=== PATIENT | male | born 1945 | race Caucasian/White ===

== ENCOUNTER 2020-06-15 15:58 | Inpatient (IN) | payer MEDICARE, OTHER ==
--- NOTE | 2020-06-15 17:19 | ER Document Report ---
ED Medical Screen (RME) - General Chief Complaint: Leg Pain Stated Complaint: LEG PAIN Time Seen by Provider: 06/15/20 16:55 Mode of Arrival: Wheelchair Information source: Patient Notes: Patient is a 74-year-old male comes emergency room with a 5-day onset of lower extremity increasing weakness. Patient states last Friday he went to a neurologist who placed him in a Pedersen catheter and leg bag. Then that afternoon he went to an ears nose and throat doctor who he states is scoped him on both sides of his nose and placed him on some Flonase and other medication for possible sinus surgery later on down the line. He states he went to bed that Friday night feeling okay when he woke up in the morning on Friday he had low back pain with radiation down both legs and he could barely get out of bed. He states that after a period time he was able to maneuver his way out by holding onto things and he took some anti-inflammatory got a little better and Motl through the day. Over the course of this past week patient states that the pain is gotten to where he is almost unable to move at all. He has to hold onto something to get his balance and and he also has to use it to steady him. He has gone from a normal gait down to a gait that has him pulling one leg in order to get it to move to his front. He also states the pain comes from the low back and down around to the lower abdomen and down both legs. He denies having any known traumatic injuries. He has not had any IV problems or drug use. He has just gotten off around antibiotics for urine with Cipro. Denies any recent fevers. And no recent surgeries besides the Pedersen catheter placement. Patient denies any loss of stool. Unable to ascertain loss of urine since Pedersen catheter was placed Physical examination: Patient is a well-nourished well-developed 74-year-old though in no apparent distress appears uncomfortable. Cardiac: Regular rate and rhythm are noted with no murmurs. Lungs: Bilateral breath sounds with breath sounds increased clear to auscultation. Lower extremities and neurologic exam. This shows patient in the sitting position with eyes closed has sensation from the inner ankles to the groin as he does from the outer ankles to the hips. His sensation is equal. Measuring patient's lower extremity strength in a sitting position patient is unable to raise his legs without the support of the hands at the waist. And this is bilateral. Unable to do DTRs for him sitting in a wheelchair and unable to get enough support in order to get a response. I have greeted and performed a rapid initial assessment of this patient. A comprehensive ED assessment and evaluation of the patient, analysis of test results and completion of the medical decision making process will be conducted by additional ED providers. Dictation of this chart was performed using voice recognition software; therefore, there may be some unintended grammatical errors. I discussed the case with Dr. Suero she agrees that given this presentation patient needs an MRI of the lumbar spine. We will also work-up labs for any sign of infection. - Related Data Allergies/Adverse Reactions: No Known Allergies Allergy (Unverified 06/15/20 16:53) Home Medications: Ipratroprium bromide, Enalapril, Allopurinol Physical Exam - Vital signs Vitals: Temp Pulse Resp BP Pulse Ox 98.0 F 91 20 143/68 H 99 06/15/20 16:06/15/20 16:02 06/15/20 16:02 06/15/20 16:02 06/15/20 16:02 Course - Vital Signs Vital signs: Temp Pulse Resp BP Pulse Ox 98.0 F 91 20 143/68 H 99 06/15/20 16:02 06/15/20 16:02 06/15/20 16:02 06/15/20 16:02 06/15/20 16:02
[2020-06-15 17:52] LABS: ABSOLUTE EOSINOPHILS # (AUTO) 0.5 10^3/uL (0.0-0.6); ABSOLUTE LYMPHOCYTES (AUTO) 1.7 10^3/uL (0.5-4.7); ABSOLUTE MONOCYTES (AUTO) 0.7 10^3/uL (0.1-1.4); ABSOLUTE NEUT (AUTO) 3.2 10^3/uL (1.7-8.2); BASOPHILS % (AUTO) 0.4 % (0-2); HEMATOCRIT 41.4 % (37.9-51.0); MEAN CORPUSCULAR HEMOGLOBIN 30.4 pg (27.0-33.4); MEAN CORPUSCULAR HGB CONC 33.7 g/dL (32.0-36.0); MEAN CORPUSCULAR VOLUME 90 fl (80-97); MONOCYTES % (AUTO) 10.9 % (3-13); PLATELET COUNT 268 10^3/uL (150-450); RED CELL DISTRIBUTION WIDTH 14.2 % (11.5-14.0); SEGMENTED NEUTROPHILS % (AUTO) 52.7 % (42-78); TOTAL CELLS COUNTED % (AUTO) 100 %; WHITE BLOOD COUNT 6.2 10^3/uL (4.0-10.5)
[2020-06-15 18:09] LABS: APPEARANCE,URINE CLOUDY; BILIRUBIN,URINE NEGATIVE (NEGATIVE); COLOR,URINE YELLOW; GLUCOSE, URINE NEGATIVE (NEGATIVE); KETONES,URINE NEGATIVE (NEGATIVE); LEUKOCYTE ESTERASE,URINE LARGE (NEGATIVE); NITRITE,URINE POSITIVE (NEGATIVE); PROTEIN,URINE 100 mg/dL (NEGATIVE); URINE SPECIFIC GRAVITY 1.016; UROBILINOGEN,URINE NEGATIVE mg/dL (<2.0)
[2020-06-15 18:12] LABS: ALBUMIN 4.3 g/dL (3.5-5.0); ALKALINE PHOSPHATASE 100 U/L (38-126); ANION GAP 10 (5-19); ASPARTATE AMINO TRANSFERASE 25 U/L (17-59); BILIRUBIN,TOTAL 0.4 mg/dL (0.2-1.3); BLOOD UREA NITROGEN 14 mg/dL (7-20); CALCIUM 9.7 mg/dL (8.4-10.2); CARBON DIOXIDE 27 mmol/L (22-30); CHLORIDE 105 mmol/L (98-107); GLUCOSE 88 mg/dL (75-110); POTASSIUM 4.6 mmol/L (3.6-5.0); TOTAL PROTEIN 7.7 g/dL (6.3-8.2)
--- NOTE | 2020-06-15 21:10 | RADIOLOGY REPORT (SQ) ---
EXAM DESCRIPTION: [facility]: MR LUMBAR SPINE WITHOUT IV CONTRAST CLINICAL HISTORY: 74 years Male; lower extremity weakness; anterior and posterior flank and low back pain. Lower extremity weakness. TECHNIQUE: Noncontrast MRI lumbar spine. COMPARISON: None. FINDINGS: Alignment is anatomic. L1-L2: No stenosis L2-L3: No stenosis L3-L4: No stenosis L4-L5: Minimal disc bulging eccentric to the left. No stenosis. L5-S1: Mild facet arthropathy. Minimal disc bulging. No stenosis. No acute bone marrow edema or perivertebral soft tissue edema. Conus medullaris and cauda equina are within normal limits. No epidural fluid collections. IMPRESSION: 1. Minimal chronic degenerative changes 2. No central stenosis, foraminal stenosis, or root displacement.
[2020-06-16] MEDS ORDERED: CIPROFLOXACIN 400 MG/D5W RTU 400 MG/200 ML RTUPB IV ONE (00:11)
[2020-06-16] MEDS ORDERED: ERTAPENEM SODIUM INJ 1 GM VIAL IV ONE (00:15)
--- NOTE | 2020-06-16 00:45 | ER Document Report ---
Entered by RIKKI CARO SCRIBE 06/15/20 [id number] Acting as scribe for:ALEXIA FRAIRE, DO ED Extremity Problem, Lower - General Chief Complaint: Leg Pain Stated Complaint: LEG PAIN Time Seen by Provider: 06/15/20 16:55 Mode of Arrival: Wheelchair Information source: Patient Notes: This 74 year old male patient presents to the ED today with complaints of bilateral lower extremity pain and weakness for the past x5 days. Patient reports difficulty ambulating secondary to pain and weakness that was resolved after taking Excedrin the day of onset, but has returned worse tonight. He mentions that he had a Jimenez catheter and a leg bag placed on 06/09/[address] Dumont at [facility] and that he finished a x30 day course of Cipro x2 days ago for a bladder infection. Denies fever or recent injury. No decreased sensation to lower extremities. - Related Data Allergies/Adverse Reactions: No Known Allergies Allergy (Unverified 06/15/20 16:53) Home Medications: Ipratroprium bromide, Enalapril, Allopurinol Past Medical History - General Information source: Patient - Social History Smoking Status: Unknown if Ever Smoked Smoking Education Provided: No Lives with: Spouse/Significant other Family History: Reviewed & Not Pertinent Patient has suicidal ideation: No Patient has homicidal ideation: No - Past Medical History Cardiac Medical History: Reports: Hx Hypertension Pulmonary Medical History: Reports: Hx COPD - BiPAP at night Malignancy Medical History: Reports Hx Prostate Cancer - 1999 Musculoskeletal Medical History: Reports Hx Gout Review of Systems - Review of Systems Constitutional: See HPI. denies: Fever EENT: No symptoms reported Cardiovascular: No symptoms reported Respiratory: No symptoms reported Gastrointestinal: No symptoms reported Genitourinary: No symptoms reported Male Genitourinary: No symptoms reported Musculoskeletal: See HPI, Other - BLE pain and weakness Skin: No symptoms reported Hematologic/Lymphatic: No symptoms reported Neurological/Psychological: See HPI. denies: Numbness, Tingling -: Yes All other systems reviewed and negative Physical Exam - Vital signs Vitals: Temp Pulse Resp BP Pulse Ox 98.0 F 91 20 143/68 H 99 06/15/20 16:02 06/15/20 16:02 06/15/20 16:02 06/15/20 16:02 06/15/20 16:02 - General General appearance: Alert In distress: None - HEENT Head: Normocephalic, Atraumatic Eyes: Normal Extraocular movements intact: Yes Pupils: PERRL - Respiratory Respiratory status: No respiratory distress Chest status: Nontender Breath sounds: Normal Chest palpation: Normal - Cardiovascular Rhythm: Regular Heart sounds: Normal auscultation Murmur: No Friction rub: No Gallop: None auscultated - Abdominal Inspection: Obese Distension: No distension Bowel sounds: Normal Tenderness: Nontender - Abdomen soft Organomegaly: No organomegaly - Back Back: Normal, Nontender - Extremities General upper extremity: Normal inspection - Neurological Orientation: AAOx4 Anna Coma Scale Eye Opening: Spontaneous [place] Coma Scale Verbal: Oriented [place] Coma Scale Motor: Obeys Commands [place] Coma Scale Total: 15 Additional motor exam normals: Weakness - Proximal muscle weakness which is symmetric and 3/5 bilaterally - Psychological Associated symptoms: Normal affect, Normal mood - Skin Skin Temperature: Warm Skin Moisture: Dry Skin Color: Normal Course - Re-evaluation Re-evalutation: 06/16/20 02:03 MDM 74 year old male with symmetric proximal muscle weakness. Just finished 30 days of cipro which may be the cause of this. Finished this 2 days ago. Not a diabetic and no fever or chills or cough or chest pain or sob. Was taking cipro due to indwelling jimenez and uti. Local urology has followed for this. No rash. No back pain. I have discussed the pt with Dr. Mehta who will see and evaluate for admission. - Vital Signs Vital signs: Temp Pulse Resp BP Pulse Ox 98.0 F 91 20 143/68 H 99 06/15/20 16:02 06/15/20 16:02 06/15/20 16:02 06/15/20 16:02 06/15/20 16:02 - Laboratory Result Diagrams: 06/15/20 17:26 06/15/20 17:26 Laboratory results interpreted by me: 06/15/20 06/15/20 06/15/20 17:26 17:26 17:26 RDW 14.2 H Eos % (Auto) 8.0 H C-Reactive Protein 71.1 H Urine Protein 100 H Urine Blood LARGE H Urine Nitrite POSITIVE H Ur Leukocyte Esterase LARGE H Urine Ascorbic Acid 20 H - Diagnostic Test Radiology reviewed: Reports reviewed Discharge - Discharge Clinical Impression: Myopathy UTI (urinary tract infection) Qualifiers: Urinary tract infection type: site unspecified Hematuria presence: with hematuria Qualified Code(s): N39.0 - Urinary tract infection, site not specified; R31.9 - Hematuria, unspecified Condition: Stable Disposition: ADMITTED OBSERVATION Admitting Provider: Tyson (Hospitalist) Unit Admitted: Medical Floor I personally performed the services described in the documentation, reviewed and edited the documentation which was dictated to the scribe in my presence, and it accurately records my words and actions.
[2020-06-16 00:53] LABS: C-REACTIVE PROTEIN 71.1 mg/L (<10.0); PHOSPHORUS 3.8 mg/dL (2.5-4.5)
[2020-06-16] MEDS ORDERED: RINGERS SOLUTION,LACTATED 1,000 ML IV ONE (01:05)
[2020-06-16] MEDS ORDERED: LEVALBUTEROL HCL NEB 0.63 MG/3 ML AMPUL NEB PRN (02:53)
[2020-06-16] MEDS ORDERED: MAG HYDROX/AL HYDROX/SIMETH SUSP 30 ML UDCUP PO PRN (02:53)
[2020-06-16] MEDS ORDERED: MAGNESIUM HYDROXIDE SUSP 30 ML UDCUP PO PRN (02:53)
[2020-06-16] MEDS ORDERED: ONDANSETRON HCL INJ/PF 4 MG/2 ML SDV IV PRN (02:53)
[2020-06-16] MEDS ORDERED: GUAIFENESIN SYRP 200 MG/10 ML UDC PO PRN (03:05)
[2020-06-16] MEDS ORDERED: LORAZEPAM INJ 2 MG/1 ML VIAL IV PRN (03:05)
[2020-06-16] MEDS ORDERED: ACETAMINOPHEN 325 MG TABLET PO PRN (03:05)
[2020-06-16] MEDS ORDERED: HYDRALAZINE HCL INJ/PF 20 MG/1 ML SDV IV PRN (03:05)
[2020-06-16] MEDS ORDERED: MEROPENEM 1 GM VIAL IV SCH (06:00)
[2020-06-16] MEDS: HEPARIN SOD (PORCINE) 5,000 UNIT/ML 1 ML VIAL SUBCUT SCH ×3 (06:23→21:37)
--- NOTE | 2020-06-16 06:47 | PDOC H&P ---
History of Present Illness Admission Date/PCP: 06/16/2020 2:17 No local PCP Patient complains of: Bilateral leg pain History of Present Illness: KRISTIN SOLIS is a 74 year old male who presented emergency room with a 6-day history of lower extremity pain. He admits waking with severe pain in his proximal bilateral lower extremities on 06/10/2020. He took anti-inflammatory medications and had some improvement in the pain such that he was able to get out of bed, however he has been unable to walk without holding onto objects to steady him. He describes the pain as a severe deep aching in his muscles that is worsened by movement and activity. The pain originates in his lower back and moves bilaterally around his hips down into his groins and thighs. He denies prior similar episodes. He denies other associated or accompanying signs and symptoms. He finished a 30-day course of Cipro for a urinary tract infection on 06/13/2020. He has not identified any additional aggravating or ameliorating factors for his pain. In the emergency room he was found to have an essentially unremarkable evaluation with the exception of a positive urinalysis from his recently placed indwelling Pedersen catheter and a dramatically elevated C-reactive protein. An MRI of his lumbar spine was also unremarkable. Patient was subsequently admitted to the hospital for further evaluation and treatment. Past Medical History Cardiac Medical History: Reports: Hypertension Denies: Atrial Fibrillation, Coronary Artery Disease, Hyperlipidema Pulmonary Medical History: Reports: Chronic Obstructive Pulmonary Disease (COPD) - BiPAP at night, Respiratory Failure - Chronic respiratory failure requiring BiPAP at night Denies: Asthma EENT Medical History: Denies: Cataracts, Ears - Hearing aids Neurological Medical History: Denies: Hemorrhagic CVA, Ischemic CVA, Seizures Endocrine Medical History: Reports: Obesity Denies: Diabetes Mellitus Type 1, Diabetes Mellitus Type 2, Hyperthyroidism, Hypothyroidism Renal/ Medical History: Reports: Other - Urinary retention with placement of Pedersen catheter 06/09/2020 Denies: Chronic Kidney Disease, Nephrolithiasis Malignancy Medical History: Reports: Other - Prostate cancer GI Medical History: Denies: Cirrhosis, Hepatitis, Peptic Ulcer Disease Musculoskeltal Medical History: Reports: Arthritis, Gout Skin Medical History: Denies: Eczema, Psoriasis Psychiatric Medical History: Denies: Alcohol Dependency, Substance Abuse, Tobacco Dependency Traumatic Medical History: Reports: None Hematology: Denies: Anemia, Bleeding Tendencies Infectious Medical History: Reports: None Past Surgical History Past Surgical History: Placement and removal of a scrotal valve for urinary control after radiation injury (treatment of prostate cancer) to the bladder and pelvic structures. Past Surgical History: Reports: Appendectomy, Other - Repair of right retinal detachment Social History Information Source: Patient Lives with: Spouse/Significant other Smoking Status: Former Smoker Electronic Cigarette use?: No Frequency of Alcohol Use: Occasional Hx Recreational Drug Use: No Drugs: None Hx Prescription Drug Abuse: No - Advance Directive Resuscitation Status: Full Code Surrogate healthcare decision maker:: Delia Solis Family History Family History: CAD, Hypertension, Malignancy, Other - Kidney disease. denies: DM Parental Family History Reviewed: Yes Children Family History Reviewed: No Sibling(s) Family History Reviewed.: Yes Medication/Allergy Home Medications: Allopurinol [Zyloprim 100 mg Tablet] 100 mg PO DAILY 06/16/20 Enalapril Maleate [Vasotec 5 mg Tablet] 5 mg PO DAILY 06/16/20 Fluticasone Propionate [Flonase Nasal [place] 50 Mcg/[place] 16 gm] 2 spray NASL BID 06/16/20 Ipratropium [place] [Atrovent 0.06% Nasal [place]] 2 spray NASL Q6 06/16/20 Metoprolol Succinate [Toprol Xl 25 mg Tab.sr] 25 mg PO DAILY 06/16/20 Omeprazole 20 mg PO Q6AM 06/16/20 Simvastatin [Zocor 40 mg Tablet] 40 mg PO QHS 06/16/20 Allergies/Adverse Reactions: No Known Allergies Allergy (Unverified 06/15/20 16:53) Review of Systems Constitutional: ABSENT: chills, fever(s) Eyes: ABSENT: visual disturbances, other - Eye pain Ears: ABSENT: hearing changes, other - Ear pain Nose, Mouth, and Throat: ABSENT: headache(s), sore throat Cardiovascular: ABSENT: chest pain, palpitations Respiratory: ABSENT: dyspnea, hemoptysis Gastrointestinal: ABSENT: abdominal pain, constipation, diarrhea, nausea, vomiting Genitourinary: PRESENT: difficulty urinating - Urinary retention treated with Pedersen catheter placed on 06/09/2020. ABSENT: dysuria, hematuria Musculoskeletal: PRESENT: as per HPI, back pain, muscle weakness. ABSENT: joint swelling Integumentary: ABSENT: pruritus, rash Neurological: PRESENT: as per HPI, abnormal gait, weakness - Bilateral proximal lower extremity and hip girdle musculature. ABSENT: confusion, convulsions, focal weakness, memory loss, syncope Psychiatric: ABSENT: anxiety, depression Endocrine: ABSENT: cold intolerance, heat intolerance Hematologic/Lymphatic: ABSENT: easy bleeding, easy bruising Allergic/Immunologic: ABSENT: seasonal rhinorrhea Physical Exam Vital Signs: Temp Pulse Resp BP Pulse Ox 98.0 F 91 20 143/68 H 99 06/15/20 16:02 06/15/20 16:02 06/15/20 16:02 06/15/20 16:02 06/15/20 16:02 Intake & Output 06/14/20 06/15/20 06/16/20 23:59 23:59 23:59 Weight 95.5 kg General appearance: PRESENT: cooperative, mild distress - Secondary to lower extremity pain, obese Head exam: PRESENT: atraumatic, normocephalic Eye exam: PRESENT: conjunctiva pink. ABSENT: conjunctival injection, scleral icterus Ear exam: PRESENT: normal external ear exam. ABSENT: bleeding, drainage Mouth exam: PRESENT: dry mucosa, neck supple Neck exam: ABSENT: thyromegaly, tracheal deviation Respiratory exam: PRESENT: prolonged expiratory phas - Mildly prolonged expi ratory phase throughout all terry, symmetrical, unlabored, wheezes - Minimal expiratory wheezes in all terry Cardiovascular exam: PRESENT: RRR. ABSENT: clicks, gallop, rubs Pulses: PRESENT: normal radial pulses, normal dorsalis pedis pul Vascular exam: PRESENT: normal capillary refill. ABSENT: pallor GI/Abdominal exam: PRESENT: normal bowel sounds, soft. ABSENT: tenderness Rectal exam: PRESENT: deferred Extremities exam: ABSENT: joint swelling, pedal edema Musculoskeletal exam: PRESENT: tenderness - 2+ muscular tenderness palpation in the bilateral hip girdles and thighs., other - Decreased strength of the bilate ral quadriceps. ABSENT: deformity, dislocation Neurological exam: PRESENT: alert, oriented to person, oriented to place, oriented to time, oriented to situation, CN II-XII grossly intact, other - "Wooden gait". ABSENT: motor sensory deficit Psychiatric exam: PRESENT: appropriate affect, normal mood Skin exam: PRESENT: dry, intact, warm. ABSENT: jaundice, rash, urticaria Results Laboratory Results: 06/15/20 17:26 06/15/20 17:26 06/15/20 06/15/20 06/15/20 17:26 17:26 17:26 WBC 6.2 RBC 4.60 Hgb 14.0 Hct 41.4 MCV 90 MCH 30.4 MCHC 33.7 RDW 14.2 H Plt Count 268 Seg Neutrophils % 52.7 Sodium 142.4 Potassium 4.6 Chloride 105 Carbon Dioxide 27 Anion Gap 10 BUN 14 Creatinine 1.15 Est GFR ( Amer) > 60 Glucose 88 Calcium 9.7 Phosphorus Total Bilirubin 0.4 AST 25 Alkaline Phosphatase 100 C-Reactive Protein Total Protein 7.7 Albumin 4.3 TSH Urine Color YELLOW Urine Appearance CLOUDY Urine pH 5.0 Ur Specific [place] 1.016 Urine Protein 100 H Urine Glucose (UA) NEGATIVE Urine Ketones NEGATIVE Urine Blood LARGE H Urine Nitrite POSITIVE H Ur Leukocyte Esterase LARGE H Urine WBC (Auto) >182 Urine RBC (Auto) >182 06/15/20 06/15/20 17:26 17:26 WBC RBC Hgb Hct MCV MCH MCHC RDW Plt Count Seg Neutrophils % Sodium Potassium Chloride Carbon Dioxide Anion Gap BUN Creatinine Est GFR ( Amer) Glucose Calcium Phosphorus 3.8 Total Bilirubin AST Alkaline Phosphatase C-Reactive Protein 71.1 H Total Protein Albumin TSH 2.57 Urine Color Urine Appearance Urine pH Ur Specific [place] Urine Protein Urine Glucose (UA) Urine Ketones Urine Blood Urine Nitrite Ur Leukocyte Esterase Urine WBC (Auto) Urine RBC (Auto) 06/15/20 17:26 Creatine Kinase 62 Impressions: Lumbar Spine MRI 06/15/20 17:13 IMPRESSION: 1. Minimal chronic degenerative changes 2. No central stenosis, foraminal stenosis, or root displacement. Assessment and Plan - Diagnosis (1) Myalgia Is this a current diagnosis for this admission?: Yes (2) Myositis Qualifiers: Myositis type: unspecified type Myositis location: thigh Laterality: unspecified laterality Qualified Code(s): M60.859 - Other myositis, unspecified thigh Is this a current diagnosis for this admission?: Yes (3) Elevated C-reactive protein (CRP) Is this a current diagnosis for this admission?: Yes (4) UTI (urinary tract infection) Qualifiers: Urinary tract infection type: site unspecified Hematuria presence: with hematuria Qualified Code(s): N39.0 - Urinary tract infection, site not specified; R31.9 - Hematuria, unspecified Is this a current diagnosis for this admission?: Yes (5) Hypertension Qualifiers: Hypertension type: essential hypertension Qualified Code(s): I10 - Essential (primary) hypertension Is this a current diagnosis for this admission?: Yes (6) Chronic obstructive pulmonary disease Qualifiers: COPD type: unspecified COPD Qualified Code(s): J44.9 - Chronic obstructive pulmonary disease, unspecified Is this a current diagnosis for this admission?: Yes (7) Gout Qualifiers: Gout site: unspecified site Gout etiology: unspecified cause Chronicity: unspecified Qualified Code(s): M10.9 - Gout, unspecified Is this a current diagnosis for this admission?: Yes - Plan Summary Summary: Patient will be admitted to the medical floor where he will receive routine supportive and symptomatic cares. He will be treated with IV fluids utilizing lactated Ringer solution 167 mL/h. He will receive IV antibiotics utilizing meropenem pending blood and urine culture results. He will use morphine sulfate 2 to 4 mg IV every 2 hours as needed for pain. He will use Ativan 1 mg IV every 4 hours as needed for anxiety or restlessness. He will be on a cardiac diet with restrictions for gout. CBCs, metabolic profiles and additional laboratory and/or radiographic evaluations will be obtained as appropriate. Patient's usual home medications will be continued, as appropriate, when his medication list has been verified and reconciled. A physical therapy consultation will be obtained. - Time Time Spent with patient: 15-24 minutes Medications reviewed and adjusted accordingly: Yes Anticipated Discharge Disposition: [facility] Facility Anticipated Discharge Timeframe: when bed available - Inpatient Certification Based on my medical assessment, after consideration of the patient's comorbidities, presenting symptoms, or acuity I expect that the services needed warrant INPATIENT care.: Yes I certify that my determination is in accordance with my understanding of Medicare's requirements for reasonable and necessary INPATIENT services [42 CFR 412.3e].: Yes Medical Necessity: Need For IV Fluids, Need for Pain Control, Need for IV Antibiotics
[2020-06-16] MEDS ORDERED: BUDESONIDE NEB 0.5 MG/2 ML AMPUL NEB SCH (08:00)
[2020-06-16] MEDS ORDERED: IPRATROPIUM BROMIDE 0.02% NEB 0.5 MG/2.5 ML AMPUL NEB SCH (08:00)
[2020-06-16] MEDS ORDERED: LEVALBUTEROL HCL NEB 1.25 MG/3 ML AMPUL NEB SCH (08:00)
[2020-06-16] MEDS ORDERED: METHYLPREDNISOLONE INJ 40 MG/1 ML SDV IV ONE (09:03)
--- NOTE | 2020-06-16 09:13 | PDOC PROGRESS REPORT ---
Subjective Progress Note for:: 06/16/20 Subjective:: Patient is still clearly uncomfortable. Reports discomfort across the suprapubic area and quadriceps muscles. Reason For Visit: ACUTE MYALGIA,ACUTE MYOSITIS Physical Exam Vital Signs: Temp Pulse Resp BP Pulse Ox 97.4 F 79 16 154/77 H 98 06/16/20 08:41 06/16/20 08:41 06/16/20 08:41 06/16/20 08:41 06/16/20 08:41 Intake & Output 06/15/20 06/16/20 06/17/20 06:59 06:59 06:59 Weight 95.5 kg General appearance: PRESENT: cooperative, mild distress, well-developed Head exam: PRESENT: atraumatic, normocephalic Eye exam: PRESENT: conjunctiva pink. ABSENT: scleral icterus Ear exam: PRESENT: normal external ear exam. ABSENT: bleeding, drainage Mouth exam: PRESENT: moist, tongue midline Teeth exam: ABSENT: poor dentation Respiratory exam: PRESENT: clear to auscultation sara, symmetrical, unlabored. ABSENT: accessory muscle use, prolonged expiratory phas, rales, rhonchi, tachypnea, wheezes Cardiovascular exam: PRESENT: RRR, +S1, +S2. ABSENT: bradycardia, diastolic murmur, irregular rhythm, systolic murmur, tachycardia GI/Abdominal exam: PRESENT: normal bowel sounds, soft. ABSENT: distended, tenderness - No tenderness over the entire abdomen including the suprapubic area. Rectal exam: PRESENT: deferred Gentrourinary exam: PRESENT: indwelling catheter - With leg bag placed by his urologist. Extremities exam: ABSENT: pedal edema, tenderness - Despite complaints of thigh pain there is no tenderness in the muscles. Musculoskeletal exam: PRESENT: ambulatory, normal inspection. ABSENT: deformity, dislocation Neurological exam: PRESENT: alert, awake, oriented to person, oriented to place, oriented to time, oriented to situation, CN II-XII grossly intact. ABSENT: altered, motor sensory deficit Psychiatric exam: PRESENT: anxious, appropriate affect. ABSENT: agitated Focused psych exam: ABSENT: delusional, paranoid, restlessness Skin exam: PRESENT: dry, normal color, warm. ABSENT: erythema, petechiae, rash Results Laboratory Results: 06/15/20 17:26 06/15/20 17:26 06/15/20 06/15/20 06/15/20 17:26 17:26 17:26 WBC 6.2 RBC 4.60 Hgb 14.0 Hct 41.4 MCV 90 MCH 30.4 MCHC 33.7 RDW 14.2 H Plt Count 268 Seg Neutrophils % 52.7 Sodium 142.4 Potassium 4.6 Chloride 105 Carbon Dioxide 27 Anion Gap 10 BUN 14 Creatinine 1.15 Est GFR ( Amer) > 60 Glucose 88 Calcium 9.7 Phosphorus Total Bilirubin 0.4 AST 25 Alkaline Phosphatase 100 C-Reactive Protein Total Protein 7.7 Albumin 4.3 TSH Urine Color YELLOW Urine Appearance CLOUDY Urine pH 5.0 Ur Specific [place] 1.016 Urine Protein 100 H Urine Glucose (UA) NEGATIVE Urine Ketones NEGATIVE Urine Blood LARGE H Urine Nitrite POSITIVE H Ur Leukocyte Esterase LARGE H Urine WBC (Auto) >182 Urine RBC (Auto) >182 06/15/20 06/15/20 17:26 17:26 WBC RBC Hgb Hct MCV MCH MCHC RDW Plt Count Seg Neutrophils % Sodium Potassium Chloride Carbon Dioxide Anion Gap BUN Creatinine Est GFR ( Amer) Glucose Calcium Phosphorus 3.8 Total Bilirubin AST Alkaline Phosphatase C-Reactive Protein 71.1 H Total Protein Albumin TSH 2.57 Urine Color Urine Appearance Urine pH Ur Specific [place] Urine Protein Urine Glucose (UA) Urine Ketones Urine Blood Urine Nitrite Ur Leukocyte Esterase Urine WBC (Auto) Urine RBC (Auto) 06/15/20 17:26 Creatine Kinase 62 Impressions: Lumbar Spine MRI 06/15/20 17:13 IMPRESSION: 1. Minimal chronic degenerative changes 2. No central stenosis, foraminal stenosis, or root displacement. Assessment and Plan - Diagnosis (1) UTI (urinary tract infection) Qualifiers: Urinary tract infection type: site unspecified Hematuria presence: with hematuria Qualified Code(s): N39.0 - Urinary tract infection, site not s pecified; R31.9 - Hematuria, unspecified Is this a current diagnosis for this admission?: Yes Plan: Continue meropenem await urine culture results (2) Myalgia Is this a current diagnosis for this admission?: Yes Plan: Unsure of etiology. Not a recognized side effect of ciprofloxacin. Trial dose of Solu-Medrol. (3) Myopathy Is this a current diagnosis for this admission?: Yes Plan: Trial of single dose Solu-Medrol as above. Physical therapy to see the patient. (4) Elevated C-reactive protein (CRP) Is this a current diagnosis for this admission?: Yes Plan: Typical of an inflammatory process. Single dose of steroids as noted above and monitor closely. - Time Time Spent with patient: 15-24 minutes Medications reviewed and adjusted accordingly: Yes Anticipated Discharge Disposition: Home, Self Care Anticipated Discharge Timeframe: within 72 hours
[2020-06-16] MEDS ORDERED: METHYLPREDNISOLONE INJ 125 MG/2 ML SDV IV ONE (09:30)
[2020-06-16] MEDS: DOCUSATE SODIUM 100 MG CAPSULE PO SCH ×2 (10:39→18:15)
[2020-06-16] MEDS: FAMOTIDINE 20 MG TABLET PO SCH ×2 (10:39→21:38)
[2020-06-16] MEDS: RINGERS SOLUTION,LACTATED 1,000 ML IV PRN ×2 (10:40→18:19)
[2020-06-16] MEDS: MEROPENEM 1 GM in NORMAL SALINE 50 ML IV SCH ×2 (14:35→21:38)
[2020-06-16] MEDS: IPRATROPIUM BROMIDE 0.06% NASAL SPRAY 15 ML NASL SCH (18:15)
[2020-06-16] MEDS: FLUTICASONE NASAL SPRAY 50 MCG/SPRY 120 SPRAY/16 GM NASL SCH (21:36)
[2020-06-16] MEDS ORDERED: SIMVASTATIN 40 MG TABLET PO SCH (22:00)
[2020-06-17] MEDS: IPRATROPIUM BROMIDE 0.06% NASAL SPRAY 15 ML NASL SCH ×3 (00:52→14:08)
[2020-06-17 05:43] LABS: HEMATOCRIT 37.4 % (37.9-51.0); HEMOGLOBIN 12.5 g/dL (13.5-17.0); MEAN CORPUSCULAR HEMOGLOBIN 29.8 pg (27.0-33.4); MEAN CORPUSCULAR HGB CONC 33.4 g/dL (32.0-36.0); MEAN CORPUSCULAR VOLUME 89 fl (80-97); PLATELET COUNT 242 10^3/uL (150-450); RED BLOOD COUNT 4.19 10^6/uL (4.35-5.55); WHITE BLOOD COUNT 8.3 10^3/uL (4.0-10.5)
[2020-06-17] MEDS: HEPARIN SOD (PORCINE) 5,000 UNIT/ML 1 ML VIAL SUBCUT SCH ×2 (05:55→14:07)
[2020-06-17] MEDS: MEROPENEM 1 GM in NORMAL SALINE 50 ML IV SCH ×2 (05:56→14:07)
[2020-06-17 06:02] LABS: ALBUMIN 3.3 g/dL (3.5-5.0); ALKALINE PHOSPHATASE 88 U/L (38-126); ANION GAP 9 (5-19); ASPARTATE AMINO TRANSFERASE 22 U/L (17-59); BILIRUBIN,TOTAL 0.2 mg/dL (0.2-1.3); BLOOD UREA NITROGEN 16 mg/dL (7-20); C-REACTIVE PROTEIN 50.1 mg/L (<10.0); CARBON DIOXIDE 25 mmol/L (22-30); CHLORIDE 105 mmol/L (98-107); CREATINE KINASE 59 U/L (55-170); GLUCOSE 151 mg/dL (75-110); POTASSIUM 4.7 mmol/L (3.6-5.0); TOTAL PROTEIN 6.1 g/dL (6.3-8.2)
[2020-06-17] MEDS ORDERED: ENALAPRIL MALEATE 5 MG TABLET PO SCH (10:00)
[2020-06-17] MEDS ORDERED: ALLOPURINOL 100 MG TABLET PO SCH (10:00)
[2020-06-17] MEDS ORDERED: METOPROLOL SUCCINATE 25 MG TAB.SR.24H PO SCH (10:00)
[2020-06-17] MEDS ORDERED: METHYLPREDNISOLONE INJ 40 MG/1 ML SDV IV SCH (10:00)
[2020-06-17] MEDS: DOCUSATE SODIUM 100 MG CAPSULE PO SCH (10:26)
[2020-06-17] MEDS: FLUTICASONE NASAL SPRAY 50 MCG/SPRY 120 SPRAY/16 GM NASL SCH (10:29)
[2020-06-17 13:34] VITALS: BP 151/83
--- NOTE | 2020-06-17 16:00 | PDOC DISCHARGE SUMMARY ---
Impression - Admit/DC Date/PCP Admission Date/Primary Care Provider: 06/16/20 02:54 Discharge Date: 06/17/20 - Discharge Diagnosis (1) UTI (urinary tract infection) Is this a current diagnosis for this admission?: Yes (2) Myalgia Is this a current diagnosis for this admission?: Yes (3) Myopathy Is this a current diagnosis for this admission?: Yes (4) Elevated C-reactive protein (CRP) Is this a current diagnosis for this admission?: Yes - Additional Information Resuscitation Status: Full Code Discharge Diet: Cardiac Discharge Activity: Activity As Tolerated Referrals: MAGI BEAL MD [ACTIVE STAFF] - 06/27/20 11:15 am (Please bring all your currrent medications, ID card, all discharge paperwork, and wear a mask.) Prescriptions: Cefpodoxime Proxetil [Vantin 200 mg Tablet] 200 mg PO BID #8 tablet Home Medications: Allopurinol [Zyloprim 100 mg Tablet] 100 mg PO DAILY 06/16/20 Enalapril Maleate [Vasotec 5 mg Tablet] 5 mg PO DAILY 06/16/20 Fluticasone Propionate [Flonase Nasal [place] 50 Mcg/[place] 16 gm] 2 spray NASL BID 06/16/20 Ipratropium [place] [Atrovent 0.06% Nasal [place]] 2 spray NASL Q6 06/16/20 Metoprolol Succinate [Toprol Xl 25 mg Tab.sr] 25 mg PO DAILY 06/16/20 Omeprazole 20 mg PO Q6AM 06/16/20 Simvastatin [Zocor 40 mg Tablet] 40 mg PO QHS 06/16/20 Cefpodoxime Proxetil [Vantin 200 mg Tablet] 200 mg PO BID #8 tablet 06/17/20 Docusate Sodium [Colace 100 mg Capsule] 100 mg PO BID capsule 06/17/20 History of Present Illiness History of Present Illness: KRISTIN GAFFNEY is a 74 year old male who presented emergency room with a 6-day history of lower extremity pain. He admits waking with severe pain in his proximal bilateral lower extremities on 06/10/2020. He took anti-inflammatory medications and had some improvement in the pain such that he was able to get out of bed, however he has been unable to walk without holding onto objects to steady him. He describes the pain as a severe deep aching in his muscles that is worsened by movement and activity. The pain originates in his lower back and moves bilaterally around his hips down into his groins and thighs. He denies prior similar episodes. He denies other associated or accompanying signs and symptoms. He finished a 30-day course of Cipro for a urinary tract infection on 06/13/2020. He has not identified any additional aggravating or ameliorating factors for his pain. In the emergency room he was found to have an essentially unremarkable evaluation with the exception of a positive urinalysis from his recently placed indwelling Pedersen catheter and a dramatically elevated C-reactive protein. An MRI of his lumbar spine was also unremarkable. Patient was subse quently admitted to the hospital for further evaluation and treatment. Hospital Course Hospital Course: unremarkable. Improved with steroids and antibiotics. Physical Exam Vital Signs: Temp Pulse Resp BP Pulse Ox 97.7 F 91 20 151/83 H 97 06/17/20 12:00 06/17/20 12:00 06/17/20 12:00 06/17/20 12:00 06/17/20 12:00 Intake & Output 06/16/20 06/17/20 06/18/20 06:59 06:59 06:59 Intake Total 4260 500 Output Total 720 Balance 3540 500 Weight 95.5 kg 93.9 kg General appearance: PRESENT: no acute distress Respiratory exam: PRESENT: clear to auscultation sara, symmetrical, unlabored. ABSENT: rales, rhonchi, tachypnea, wheezes Cardiovascular exam: PRESENT: RRR, +S1, +S2. ABSENT: bradycardia, diastolic murmur, irregular rhythm, systolic murmur, tachycardia GI/Abdominal exam: PRESENT: normal bowel sounds, soft. ABSENT: tenderness Neurological exam: PRESENT: alert, awake, oriented to person, oriented to place, oriented to time, oriented to situation Results Laboratory Results: WBC 8.3 10^3/uL (4.0-10.5) 06/17/20 04:58 RBC 4.19 10^6/uL (4.35-5.55) L 06/17/20 04:58 Hgb 12.5 g/dL (13.5-17.0) L 06/17/20 04:58 Hct 37.4 % (37.9-51.0) L 06/17/20 04:58 MCV 89 fl (80-97) 06/17/20 04:58 MCH 29.8 pg (27.0-33.4) 06/17/20 04:58 MCHC 33.4 g/dL (32.0-36.0) 06/17/20 04:58 RDW 14.0 % (11.5-14.0) 06/17/20 04:58 Plt Count 242 10^3/uL (150-450) 06/17/20 04:58 Lymph % (Auto) 28.0 % (13-45) 06/15/20 17:26 Bracken % (Auto) 10.9 % (3-13) 06/15/20 17:26 Eos % (Auto) 8.0 % (0-6) H 06/15/20 17:26 Baso % (Auto) 0.4 % (0-2) 06/15/20 17:26 Absolute Neuts (auto) 3.2 10^3/uL (1.7-8.2) 06/15/20 17:26 Absolute Lymphs (auto) 1.7 10^3/uL (0.5-4.7) 06/15/20 17:26 Absolute Monos (auto) 0.7 10^3/uL (0.1-1.4) 06/15/20 17:26 Absolute Eos (auto) 0.5 10^3/uL (0.0-0.6) 06/15/20 17:26 Absolute Basos (auto) 0.0 10^3/uL (0.0-0.2) 06/15/20 17:26 Seg Neutrophils % 52.7 % (42-78) 06/15/20 17:26 ESR 85 mm/hr (0-20) H 06/16/20 06:25 Sodium 138.9 mmol/L (137-145) 06/17/20 04:58 Potassium 4.7 mmol/L (3.6-5.0) 06/17/20 04:58 Chloride 105 mmol/L (98-107) 06/17/20 04:58 Carbon Dioxide 25 mmol/L (22-30) 06/17/20 04:58 Anion Gap 9 (5-19) 06/17/20 04:58 BUN 16 mg/dL (7-20) 06/17/20 04:58 Creatinine 1.03 mg/dL (0.52-1.25) 06/17/20 04:58 Est GFR ( Amer) > 60 (>60) 06/17/20 04:58 Est GFR (MDRD) Non-Af > 60 (>60) 06/17/20 04:58 Glucose 151 mg/dL (75-110) H 06/17/20 04:58 Calcium 9.0 mg/dL (8.4-10.2) 06/17/20 04:58 Phosphorus 3.8 mg/dL (2.5-4.5) 06/15/20 17:26 Magnesium 1.8 mg/dL (1.6-2.3) 06/17/20 04:58 Total Bilirubin 0.2 mg/dL (0.2-1.3) 06/17/20 04:58 Direct Bilirubin 0.0 mg/dL (0.0-0.4) 06/17/20 04:58 Neonat Total Bilirubin Not Reportable 06/17/20 04:58 Neonat Direct Bilirubin Not Reportable 06/17/20 04:58 Neonat Indirect Bili Not Reportable 06/17/20 04:58 AST 22 U/L (17-59) 06/17/20 04:58 ALT 19 U/L (<50) 06/17/20 04:58 Alkaline Phosphatase 88 U/L (38-126) 06/17/20 04:58 Creatine Kinase 59 U/L (55-170) 06/17/20 04:58 C-Reactive Protein 50.1 mg/L (<10.0) H 06/17/20 04:58 Total Protein 6.1 g/dL (6.3-8.2) L 06/17/20 04:58 Albumin 3.3 g/dL (3.5-5.0) L 06/17/20 04:58 TSH 2.57 uIU/mL (0.47-4.68) 06/15/20 17:26 Urine Color YELLOW 06/15/20 17:26 Urine Appearance CLOUDY 06/15/20 17:26 Urine pH 5.0 (5.0-9.0) 06/15/20 17:26 Ur Specific [place] 1.016 06/15/20 17:26 Urine Protein 100 mg/dL (NEGATIVE) H 06/15/20 17:26 Urine Glucose (UA) NEGATIVE mg/dL (NEGATIVE) 06/15/20 17:26 Urine Ketones NEGATIVE mg/dL (NEGATIVE) 06/15/20 17:26 Urine Blood LARGE (NEGATIVE) H 06/15/20 17:26 Urine Nitrite POSITIVE (NEGATIVE) H 06/15/20 17:26 Urine Bilirubin NEGATIVE (NEGATIVE) 06/15/20 17:26 Urine Urobilinogen NEGATIVE mg/dL (<2.0) 06/15/20 17:26 Ur Leukocyte Esterase LARGE (NEGATIVE) H 06/15/20 17:26 Urine WBC (Auto) >182 /HPF 06/15/20 17:26 Urine RBC (Auto) >182 /HPF 06/15/20 17:26 Urine Bacteria (Auto) 1+ /HPF 06/15/20 17:26 Urine WBC Clumps FEW /HPF 06/15/20 17:26 Urine Mucus (Auto) OCC /LPF 06/15/20 17:26 Urine Ascorbic Acid 20 (NEGATIVE) H 06/15/20 17:26 Impressions: Lumbar Spine MRI 06/15/20 17:13 IMPRESSION: 1. Minimal chronic degenerative changes 2. No central stenosis, foraminal stenosis, or root displacement. 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 Seeing urologist next week. Plan of Treatment: based on recent cultures and preliminary results will discharge on 3rd gen cephalosporin Goals: resolve recurrent uti's Time Spent: Greater than 30 Minutes Stroke Is this a Stroke Patient?: No Acute Heart Failure - Is this a Heart Failure Patient?: No
== END 2020-06-17 16:29 | disposition home or self-care (01) | DRG 690 ==
LOC: ER 15:58 → EH 06-16 02:12 → OBSVTOIN 06-16 02:54 → 4S 06-16 11:59
PROVIDERS: ADMIT Emergency Medicine; ATTEND Hospitalist
DX: N39.0 Urinary tract infection, site not specified (principal); M60.9 Myositis, unspecified; M79.605 Pain in left leg; M79.604 Pain in right leg; I10 Essential (primary) hypertension; R31.9 Hematuria, unspecified; R79.82 Elevated C-reactive protein (CRP); J44.9 Chronic obstructive pulmonary disease, unspecified; M10.9 Gout, unspecified; Z96.0 Presence of urogenital implants; Z85.46 Personal history of malignant neoplasm of prostate
CPT/HCPCS: 36415; 72148; 80053; 81001; 82550; 83735; 84100; 84443; 85025; 85027; 85652; 86140; 87040; 87086; 87088; 87186; 94640; 94660; 96374; 99285; J1335; J1644; J2185; J2930; J3490; J7120

== ENCOUNTER → 2020-07-10 | Outpatient (CLI) | payer MEDICARE, OTHER ==
--- NOTE | 2020-07-10 15:06 | RADIOLOGY REPORT (SQ) ---
EXAM DESCRIPTION: SACROILIAC JOINTS IMAGES COMPLETED DATE/TIME: 07/10/2020 2:11 pm REASON FOR STUDY: (M46.1)SACROILIITIS, NOT ELSEWHERE CLASSIFIED M46.1 SACROILIITIS, NOT ELSEWHERE C LASSIFIED COMPARISON: None. NUMBER OF VIEWS: Three views. TECHNIQUE: AP and oblique views of the sacroiliac joints. LIMITATIONS: None. FINDINGS: MINERALIZATION: Normal. BONES: No acute fracture or dislocation. No worrisome bone lesions. Minimal inferior osteophytes. JOINTS: The sacroiliac joints are patent. Mild inferior sclerosis bilaterally. No unusual widening or fusion. SOFT TISSUES: No soft tissue swelling. No radio-opaque foreign body. OTHER: Brachytherapy seeds within the prostate IMPRESSION: Mild degenerative changes without sacroiliac fusion or asymmetric sclerosis. TECHNICAL DOCUMENTATION: JOB ID: [id number] 2010 [employer]- All Rights Reserved Reading location - IP/workstation name: [email or web address]
== END ==
LOC: RAD 13:40
PROVIDERS: ATTEND Internal Medicine Geriatric Medicine
DX: M46.1 Sacroiliitis, not elsewhere classified (principal)
CPT/HCPCS: 72200

== ENCOUNTER → 2020-07-28 | Outpatient (CLI) | payer MEDICARE, OTHER ==
--- NOTE | 2020-07-29 18:59 | RADIOLOGY REPORT (SQ) ---
EXAM DESCRIPTION: MRI LT LOWER EXTREMITY COMBO IMAGES COMPLETED DATE/TIME: 07/28/2020 7:39 pm REASON FOR STUDY: (M79.652)PAIN IN LEFT THIGH M79.652 PAIN IN LEFT THIGH. Left thigh 0 mass for 2 weeks. Radiating pain. No reported injury. History of prostate cancer status post radiation 20 yea rs ago. COMPARISON: None. TECHNIQUE: Left upper leg images acquired and stored on PACS. Multiplanar images include fat sensit blaire sequences as T1, water sensitive sequences as FST2 or STIR, cartilage sensitive sequences as FSPD , and gradient echo sequences. No IV contrast was given due to patient's lower GFR of 42 today. LIMITATIONS: None. FINDINGS: BONES: There is abnormal bone marrow signal with T1 hypointense signal and T2 hyperintense signal at the pubic symphysis extending into the inferior pubic rami bilaterally. No linear fractur e line. Small amount of fluid at the pubic symphysis and mild edema in the surrounding muscles. SOFT TISSUES: There is an intramuscular lesion within the medial bursa was muscle which is isointense to muscle on T1 series and hyperintense on T2 series measuring 2.7 x 1.8 cm. This is contained with in the muscular layer with mild surrounding inflammatory change at the muscle on T2 weighted images. Remaining soft tissues have a normal appearance. There is no hip joint effusion. Sigmoid diverticu losis without evidence of diverticulitis. OTHER: No other significant finding. IMPRESSION: 1. Intramuscular cystic lesion with signal characteristics suggestive of an intramuscular hematoma, h owever other mixed cystic lesions could have this appearance. Clinical correlation for recent injury recommended. Follow-up with contrast-enhanced MRI is recommended for complete characterization to e valuate for soft tissue component. 2. Abnormal bone marrow signal at the pubic symphysis and inferior pubic rami without definite fractu re line, consistent with bone marrow edema. Finding could be seen with contusion, infection or infla mmatory process. Osteitis pubis could also have this appearance. Clinical correlation. TECHNICAL DOCUMENTATION: JOB ID: [id number] 2010 [email or web address]- All Rights Reserved Reading location - IP/workstation name: [email or web address]
== END ==
LOC: RAD 19:22
PROVIDERS: ATTEND Nurse Practitioner Adult Health
DX: M79.652 Pain in left thigh (principal); M62.89 Other specified disorders of muscle
CPT/HCPCS: 82565

== ENCOUNTER → 2020-09-19 | Outpatient (CLI) | payer MEDICARE, OTHER ==
--- NOTE | 2020-09-19 14:29 | RADIOLOGY REPORT (SQ) ---
EXAM DESCRIPTION: CT LEFT LOWER EXTREMITY WITH IMAGES COMPLETED DATE/TIME: 09/19/2020 10:03 am REASON FOR STUDY: R22.9 LOCALIZED SWELLING, MASS AND LUMP, LEFT LOWER LIMB R22.42 LOCALIZED SWELLIN G, MASS AND LUMP, LEFT LOWER LIMB COMPARISON: Pelvis radiograph 07/10/2020. MRI left hip 07/28/2020. TECHNIQUE: CT scan of the left hip performed with intravenous or oral contrast. Images reviewed wit h soft tissue and bone windows. Reconstructed coronal and sagittal MPR images reviewed. All images stored on PACS. All CT scanners at this facility use dose modulation, iterative reconstruction, and/or weight based d osing when appropriate to reduce radiation dose to as low as reasonably achievable (ALARA). [facility]: Dose Right [facility]: CareDose [facility]: Dose Right [facility]: Teradose 4D [facility]: [employer] Total 50 mL Omnipaque contrast given. GFR greater than 60. RADIATION DOSE: mGy. LIMITATIONS: None. FINDINGS: PELVIC BONES: There is no acute fracture. Mixed sclerotic and permeative appearance at th e pubic symphysis with associated inflammatory change corresponding to the abnormal signal on previou s MRI. Pin foci of gas are seen at the inferior aspect of the pubic symphysis were there is also dys trophic calcification. Proximal femurs have a normal appearance. There is sclerosis at the sacroili ac joints bilaterally. No sacral fracture. VISUALIZED SPINE: No acute findings. SYMPTOMATIC HIP: No acute fracture or dislocation. No worrisome bone lesions. OPPOSITE HIP: No acute fracture or dislocation. No worrisome bone lesions. PELVIC SOFT TISSUES: Soft tissue swelling and inflammatory change involving the pubic symphysis and e xtending into the left dorsal us muscle. Within the muscle, there is a 5 x 4.2 cm gas and fluid janey ection which extends superiorly to the level of the pubic symphysis. This measures about 8.4 cm cran ial caudal. There prostatic radiation seeds within the prostate gland, with associated gas anteriorl y. Small amount a gas within the urinary bladder may be iatrogenic from recent catheterization. Pat ient does appear to have a external urinary catheter present. There is extensive sigmoid diverticulo sis without evidence of diverticulitis. No pelvic adenopathy or free fluid. Small left inguinal lym ph nodes not significantly enlarged. EXTRAPELVIC SOFT TISSUES: No significant findings. OTHER: No other significant finding. IMPRESSION: There is an intramuscular abscess within the left gracilis muscle which extends to the p ubic symphysis. Permeative appearance of the pubic symphysis with subcutaneous gas involving the pub ic symphysis and surrounding soft tissues including the inferior prostate were there are prostatic ra diation seeds. 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 The intramuscular component has progressed since previous MRI pe rformed 07/28/2020. COMMENT: Findings discussed with Jesu Sandoval NP on 09/19/2020 at 14 10 hours Eastern time. TECHNICAL DOCUMENTATION: JOB ID: [id number] Quality ID # [id number]: Final reports with documentation of one or more dose reduction techniques (e.g., Au tomated exposure control, adjustment of the mA and/or kV according to patient size, use of iterative reconstruction technique) 2010 [employer]- All Rights Reserved Reading location - IP/workstation name: [email or web address]
== END ==
LOC: RAD 09:51
PROVIDERS: ATTEND Nurse Practitioner Adult Health
DX: R22.42 Localized swelling, mass and lump, left lower limb (principal)
CPT/HCPCS: 82565

== ENCOUNTER → 2020-09-27 | Outpatient (CLI) | payer MEDICARE, OTHER ==
[~2020-09-27] MED LIST: LACTATED RINGERS 1000 ML IV PRN; LIDOCAINE 0.5% INJ-PF (5 MG/ML) 50 ML SDV SUBCUT PRN
[2020-09-27 12:28] LABS: HEMATOCRIT 35.2 % (37.9-51.0); HEMOGLOBIN 11.5 g/dL (13.5-17.0); MEAN CORPUSCULAR HEMOGLOBIN 27.8 pg (27.0-33.4); MEAN CORPUSCULAR HGB CONC 32.7 g/dL (32.0-36.0); MEAN CORPUSCULAR VOLUME 85 fl (80-97); PLATELET COUNT 373 10^3/uL (150-450); RED BLOOD COUNT 4.13 10^6/uL (4.35-5.55); RED CELL DISTRIBUTION WIDTH 16.5 % (11.5-14.0); WHITE BLOOD COUNT 5.7 10^3/uL (4.0-10.5)
--- NOTE | 2020-09-27 12:50 | RADIOLOGY REPORT (SQ) ---
EXAM DESCRIPTION: CHEST 2 VIEWS IMAGES COMPLETED DATE/TIME: 09/27/2020 11:42 am REASON FOR STUDY: COUGH COMPARISON: None. EXAM PARAMETERS: NUMBER OF VIEWS: Two views. TECHNIQUE: PA and lateral views of the chest were obtained. RADIATION DOSE: NA LIMITATIONS: None. FINDINGS: LUNGS AND PLEURA: No consolidation, pleural effusion or pneumothorax. MEDIASTINUM AND HILAR STRUCTURES: No mediastinal or hilar contour abnormality. HEART AND VASCULAR STRUCTURES: The cardiac silhouette and pulmonary vasculature are within normal corona its. BONES: No acute findings. HARDWARE: None in the chest. OTHER: No other finding. IMPRESSION: No acute cardiopulmonary process. TECHNICAL DOCUMENTATION: JOB ID: [id number] 2010 [email or web address]- All Rights Reserved Reading location - IP/workstation name: [email or web address]
[2020-09-27 12:58] LABS: ANION GAP 9 (5-19); BLOOD UREA NITROGEN 20 mg/dL (7-20); CALCIUM 9.7 mg/dL (8.4-10.2); CARBON DIOXIDE 27 mmol/L (22-30); CHLORIDE 104 mmol/L (98-107); GLUCOSE 90 mg/dL (75-110); POTASSIUM 5.2 mmol/L (3.6-5.0)
--- NOTE | 2020-09-27 13:38 | EKG REPORT ---
SEVERITY:- ABNORMAL ECG - SINUS RHYTHM : Confirmed by: Beny Serrano MD 27-Sep-2020 13:37:42
== END ==
LOC: OROUT 11:11 → EDSTATUS 10-17 12:15
PROVIDERS: ATTEND Surgery
DX: Z01.810 Encounter for preprocedural cardiovascular examination (principal); Z01.812 Encounter for preprocedural laboratory examination; Z20.828 Contact with and (suspected) exposure to other viral communicable diseases; Z01.818 Encounter for other preprocedural examination; R05 Cough; L02.214 Cutaneous abscess of groin
CPT/HCPCS: 93005; 36415; 85027; 80048; 71046; 93010; U0003; C9803; 87635

== ENCOUNTER 2020-10-06 09:18 | Inpatient (IN) | payer MEDICARE, OTHER ==
[2020-10-06] MEDS ORDERED: NORMAL SALINE 1000 ML 1,000 ML IV ONE (10:08)
--- NOTE | 2020-10-06 10:08 | ER Document Report ---
ED Medical Screen (RME) - General Chief Complaint: Leg Swelling Stated Complaint: LEFT LEG PAIN,SWELLING Time Seen by Provider: 10/06/20 10:03 Primary Care Provider: MAGI BEAL MD [Primary Care Provider] - Follow up as needed Mode of Arrival: Ambulatory Information source: Patient Notes: 75-year-old male presented to ED with complaint of left groin abscess. He was scheduled to have it removed on Friday with Dr. Peterson. He states he was called and told that Kristen was no longer available so they rescheduled it for [address] Peterson. Patient went to Dr. Beal yesterday because he was having increasing pain in the area. Dr. Beal said that he needed to go to the emergency room and see the surgeon party plan demonstrator because he needed this drained and taking care of now not on the . Will order blood EKG x-ray and he will be seen by a provider and consulted surgery for removal of the abscess. No food or drink since last night I have greeted and performed a rapid initial assessment of this patient. A comprehensive ED assessment and evaluation of the patient, analysis of test results and completion of medical decision making process will be conducted by an additional ED providers. - Related Data Allergies/Adverse Reactions: ciprofloxacin [From Cipro] Allergy (Verified 10/06/20 09:48) ampicillin Adverse Reaction (Verified 10/06/20 09:48) Past Medical History - Social History Chew tobacco use (# tins/day): No Frequency of alcohol use: None Drug Abuse: None - Past Medical History Cardiac Medical History: Reports: Hx Hypertension Denies: Hx Atrial Fibrillation, Hx Coronary Artery Disease, Hx Heart Attack, Hx Hypercholesterolemia Pulmonary Medical History: Reports: Hx Respiratory Failure - Chronic respiratory failure requiring BiPAP at night Denies: Hx Asthma, Hx Bronchitis, Hx COPD, Hx Pneumonia Neurological Medical History: Denies: Hx Cerebrovascular Accident, Hx Seizures Endocrine Medical History: Denies: Hx Diabetes Mellitus Type 1, Hx Diabetes Mellitus Type 2, Hx Hyperthyroidism, Hx Hypothyroidism Malignancy Medical History: Reports Hx Prostate Cancer - 1999 GI Medical History: Denies: Hx Cirrhosis, Hx Hepatitis Musculoskeltal Medical History: Denies Hx Arthritis - GOUT, Reports Hx Gout Skin Medical History: Denies Hx Eczema, Denies Hx Psoriasis Psychiatric Medical History: Denies: Hx Depression Infectious Medical History: Denies: Hx Hepatitis Past Surgical History: Reports: Hx Appendectomy, Other - Repair of right retinal detachment - Immunizations Hx Diphtheria, Pertussis, Tetanus Vaccination: Yes Physical Exam - Vital signs Vitals: Temp Pulse Resp BP Pulse Ox 97.9 F 69 20 127/69 H 98 10/06/20 09:34 10/06/20 09:34 10/06/20 09:34 10/06/20 09:34 10/06/20 09:34 Course - Vital Signs Vital signs: Temp Pulse Resp BP Pulse Ox 97.9 F 69 20 127/69 H 98 10/06/20 09:34 10/06/20 09:34 10/06/20 09:34 10/06/20 09:34 10/06/20 09:34 Doctor's Discharge - Discharge Referrals: MAGI BEAL MD [Primary Care Provider] - Follow up as needed
[2020-10-06 10:57] LABS: ABSOLUTE BASOPHILS # (AUTO) 0.1 10^3/uL (0.0-0.2); ABSOLUTE EOSINOPHILS # (AUTO) 0.3 10^3/uL (0.0-0.6); ABSOLUTE LYMPHOCYTES (AUTO) 1.7 10^3/uL (0.5-4.7); ABSOLUTE MONOCYTES (AUTO) 0.5 10^3/uL (0.1-1.4); ABSOLUTE NEUT (AUTO) 3.2 10^3/uL (1.7-8.2); BASOPHILS % (AUTO) 1.2 % (0-2); EOSINOPHILS % (AUTO) 5.1 % (0-6); HEMATOCRIT 37.7 % (37.9-51.0); HEMOGLOBIN 12.2 g/dL (13.5-17.0); LYMPHOCYTES % (AUTO) 28.7 % (13-45); MEAN CORPUSCULAR HEMOGLOBIN 27.8 pg (27.0-33.4); MEAN CORPUSCULAR HGB CONC 32.3 g/dL (32.0-36.0); MEAN CORPUSCULAR VOLUME 86 fl (80-97); MONOCYTES % (AUTO) 9.1 % (3-13); PLATELET COUNT 275 10^3/uL (150-450); RED BLOOD COUNT 4.38 10^6/uL (4.35-5.55); RED CELL DISTRIBUTION WIDTH 17.2 % (11.5-14.0); SEGMENTED NEUTROPHILS % (AUTO) 55.9 % (42-78); TOTAL CELLS COUNTED % (AUTO) 100 %; WHITE BLOOD COUNT 5.8 10^3/uL (4.0-10.5)
--- NOTE | 2020-10-06 11:08 | RADIOLOGY REPORT (SQ) ---
EXAM DESCRIPTION: CHEST 2 VIEWS IMAGES COMPLETED DATE/TIME: 10/06/2020 10:56 am REASON FOR STUDY: Possible preop COMPARISON: PA and lateral views of the chest from 09/27/2020. EXAM PARAMETERS: NUMBER OF VIEWS: Two views. TECHNIQUE: PA and lateral views of the chest were obtained. RADIATION DOSE: NA LIMITATIONS: None. FINDINGS: LUNGS AND PLEURA: No consolidation, pleural effusion or pneumothorax. MEDIASTINUM AND HILAR STRUCTURES: No mediastinal or hilar contour abnormality. HEART AND VASCULAR STRUCTURES: The cardiac silhouette and pulmonary vasculature are within normal corona its. BONES: No acute findings. HARDWARE: None in the chest. OTHER: No other finding. IMPRESSION: No acute cardiopulmonary process. TECHNICAL DOCUMENTATION: JOB ID: [id number] 2010 [employer]- All Rights Reserved Reading location - IP/workstation name: [email or web address]
--- NOTE | 2020-10-06 13:23 | EKG REPORT ---
SEVERITY:- NORMAL ECG - SINUS RHYTHM : Confirmed by: Taisha Garvin 06-Oct-2020 13:21:59
[2020-10-06 13:34] LABS: ALBUMIN 3.6 g/dL (3.5-5.0); ALKALINE PHOSPHATASE 97 U/L (38-126); ANION GAP 9 (5-19); ASPARTATE AMINO TRANSFERASE 18 U/L (17-59); BILIRUBIN,TOTAL 0.4 mg/dL (0.2-1.3); BLOOD UREA NITROGEN 15 mg/dL (7-20); CALCIUM 9.4 mg/dL (8.4-10.2); CARBON DIOXIDE 23 mmol/L (22-30); CHLORIDE 106 mmol/L (98-107); GLUCOSE 90 mg/dL (75-110); POTASSIUM 4.9 mmol/L (3.6-5.0); TOTAL PROTEIN 7.2 g/dL (6.3-8.2)
--- NOTE | 2020-10-06 15:31 | ER Document Report ---
ED Extremity Problem, Lower - General Chief Complaint: Groin Pain Stated Complaint: LEFT LEG PAIN,SWELLING Time Seen by Provider: 10/06/20 10:03 Mode of Arrival: Ambulatory - [facility] Notes: Patient is a 75-year-old male with a past medical history of high blood pressure and prostate cancer status post external catheter who presents with a left leg abscess. Patient states he developed a lump on his leg several months ago. He went to physical therapy for it and saw his PCP. Eventually the lump migrated to the left groin area in the inner upper thigh. He had a CT scan done which showed that it was an intramuscular abscess. Please see the report from 09/19. He states that he was supposed to have surgery by Dr. Peterson this week but Dr. Peterson is out of the office for 2 weeks. He called his PCP who called the surgical team and they recommended that he go to the ED. Patient states he has been having some chills. He had a low-grade fever yesterday. Denies any other complaints. Not on any blood thinners. - Related Data Allergies/Adverse Reactions: ciprofloxacin [From Cipro] Allergy (Verified 10/06/20 09:48) ampicillin Adverse Reaction (Verified 10/06/20 09:48) Past Medical History - General Information source: Patient - Social History Smoking Status: Never Smoker Chew tobacco use (# tins/day): No Frequency of alcohol use: None Drug Abuse: None Family History: CAD, Hypertension, Malignancy, Other - Kidney disease. denies: DM Patient has homicidal ideation: No - Past Medical History Cardiac Medical History: Reports: Hx Hypertension Denies: Hx Atrial Fibrillation, Hx Coronary Artery Disease, Hx Heart Attack, Hx Hypercholesterolemia Pulmonary Medical History: Reports: Hx Respiratory Failure - Chronic respiratory failure requiring BiPAP at night Denies: Hx Asthma, Hx Bronchitis, Hx COPD, Hx Pneumonia Neurological Medical History: Denies: Hx Cerebrovascular Accident, Hx Seizures Endocrine Medical History: Denies: Hx Diabetes Mellitus Type 1, Hx Diabetes Mellitus Type 2, Hx Hyperthyroidism, Hx Hypothyroidism Malignancy Medical History: Reports Hx Prostate Cancer - 1999 GI Medical History: Denies: Hx Cirrhosis, Hx Hepatitis Musculoskeletal Medical History: Denies Hx Arthritis - GOUT, Reports Hx Gout Skin Medical History: Denies Hx Eczema, Denies Hx Psoriasis Psychiatric Medical History: Denies: Hx Depression Infectious Medical History: Denies: Hx Hepatitis Past Surgical History: Reports: Hx Appendectomy, Other - Repair of right retinal detachment - Immunizations Hx Diphtheria, Pertussis, Tetanus Vaccination: Yes Physical Exam - Vital signs Vitals: Temp Pulse Resp BP Pulse Ox 97.9 F 69 20 127/69 H 98 10/06/20 09:34 10/06/20 09:34 10/06/20 09:34 10/06/20 09:34 10/06/20 09:34 Course - Re-evaluation Re-evalutation: 10/07/20 01:[address] Peterson's office and he is out of the office for 2 weeks. I talked to Dr. Carpenter from surgery who evaluated the patient in the ED. Patient has a CT scan from previous which shows an intramuscular abscess. He recommended patient be admitted by medicine. He also recommended we start him on Bactrim IV. I discussed with Dr. Caballero who will admit the patient. Patient and his are very agreeable. No acute distress and lab work was reviewed. 10/07/20 01:26 - Vital Signs Vital signs: Temp Pulse Resp BP Pulse Ox 98.1 F 74 18 140/74 H 98 10/07/20 01:09 10/07/20 01:09 10/07/20 01:09 10/07/20 01:09 10/07/20 01:09 - Laboratory Results Result Diagrams: 10/06/20 10:44 10/06/20 12:36 Laboratory Results Interpreted: 10/06/20 10:44 Hgb 12.2 L Hct 37.7 L RDW 17.2 H Critical Laboratory Results Reviewed: No Critical Results - Radiology Results Critical Radiology Results Reviewed: No Critical Results - EKG Interpretation by Mi EKG shows normal: Sinus rhythm Rate: Normal Rhythm: NSR When compared to previous EKG there are: No significant change Additional EKG results interpreted by me: 10/06/20 16:32 Sinus rhythm at a rate of 62. QTc 439. No acute ST changes. EKG is similar to previous. Discharge - Discharge Clinical Impression: Abscess of groin, left Condition: Stable Disposition: ADMITTED INPATIENT Admitting Provider: Ada Unit Admitted: Surgical Floor
[2020-10-06] MEDS ORDERED: SULFAMETHOX/TRIMETH 800-160 MG/10 ML VIAL IV ONE (16:05)
--- NOTE | 2020-10-06 16:48 | PDOC CONSULTATION ---
Consultation Consult Date: 10/06/20 Provider Consulted: UCHE KAY Consult reason:: Abscess left groin History of Present Illness Admission Date/PCP: 10/06/20 16:14 MAGI BEAL History of Present Illness: KRISTIN GAFFNEY is a 75 year old male hypertensive with history of prostate cancer 20 years ago where he had radiation therapy, around May had UTI with Cipro and apparently developed some redness and pains along both lower legs and was admitted 820 discharged on 06/17/2020. Around June or July developed swelling of the left groin and subsequently had an MRI on 07/28/2020 where he was noted to have an intramuscular hematoma along the left groin. 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 Dr. Peterson was then consulted and the patient was scheduled for incision and drainage. Unfortunately Dr. Peterson unable to do the procedure at this time and patient then presented to the ED today. Patient has been noticing low-grade fever with occasional chills. Past Medical History Cardiac Medical History: Reports: Hypertension Denies: Atrial Fibrillation, Coronary Artery Disease, Myocardial Infarction, Hyperlipidema Pulmonary Medical History: Reports: Respiratory Failure - Chronic respiratory failure requiring BiPAP at night Denies: Asthma, Bronchitis, Chronic Obstructive Pulmonary Disease (COPD), Pneumonia Neurological Medical History: Denies: Seizures Endocrine Medical History: Denies: Diabetes Mellitus Type 1, Diabetes Mellitus Type 2, Hyperthyroidism, Hypothyroidism GI Medical History: Denies: Cirrhosis, Hepatitis Musculoskeltal Medical History: Reports: Gout Denies: Arthritis - GOUT Skin Medical History: Denies: Eczema, Psoriasis Psychiatric Medical History: Denies: Depression Hematology: Denies: Anemia, Bleeding Tendencies Past Surgical History Past Surgical History: Reports: Appendectomy, Other - Repair of right retinal detachment Social History Smoking Status: Never Smoker Electronic Cigarette use?: No Frequency of Alcohol Use: Occasional Hx Recreational Drug Use: No Drugs: None Hx Prescription Drug Abuse: No Family History Family History: CAD, Hypertension, Malignancy, Other - Kidney disease. denies: DM Parental Family History Reviewed: Yes Children Family History Reviewed: No Sibling(s) Family History Reviewed.: No Medication/Allergy Home Medications: Allopurinol [Zyloprim 100 mg Tablet] 100 mg PO DAILY 10/06/20 Enalapril Maleate 2.5 mg PO QHS 10/06/20 Metoprolol Succinate [Toprol Xl 25 mg Tab.sr] 25 mg PO DAILY 10/06/20 Omeprazole Magnesium [Prilosec Otc] 20 mg PO DAILY 10/06/20 Allergies/Adverse Reactions: ciprofloxacin [From Cipro] Allergy (Verified 10/06/20 09:48) ampicillin Adverse Reaction (Verified 10/06/20 09:48) Review of Systems Constitutional: PRESENT: as per HPI Musculoskeletal: PRESENT: other - Left groin swelling, pains and redness Physical Exam Vital Signs: Temp Pulse Resp BP Pulse Ox 97.9 F 69 20 127/69 H 98 10/06/20 09:34 10/06/20 09:34 10/06/20 09:34 10/06/20 09:34 10/06/20 09:34 Intake & Output 10/05/20 10/06/20 10/07/20 06:59 06:59 06:59 Weight 85.275 kg General appearance: PRESENT: mild distress Head exam: PRESENT: atraumatic Eye exam: PRESENT: conjunctiva pink Mouth exam: PRESENT: moist Neck exam: PRESENT: full ROM Respiratory exam: PRESENT: clear to auscultation sara Cardiovascular exam: PRESENT: RRR Pulses: PRESENT: normal radial pulses, normal dorsalis pedis pul Vascular exam: PRESENT: normal capillary refill GI/Abdominal exam: PRESENT: soft Rectal exam: PRESENT: deferred, other - As a chronic Pedersen catheter Extremities exam: PRESENT: other - There is an 8 cm reddish swelling on the left groin with fluctuant in the middle and firmness along the surrounding erythema. Neurological exam: PRESENT: alert, oriented to person, oriented to place, oriented to time, oriented to situation Psychiatric exam: PRESENT: appropriate affect Skin exam: PRESENT: erythema - On the left groin with swelling Results Laboratory Results: 10/06/20 10:44 10/06/20 12:36 10/06/20 10/06/20 10/06/20 10:44 10:44 12:36 WBC 5.8 RBC 4.38 Hgb 12.2 L Hct 37.7 L MCV 86 MCH 27.8 MCHC 32.3 RDW 17.2 H Plt Count 275 Seg Neutrophils % 55.9 Sodium Cancelled 138.0 Potassium Cancelled 4.9 Chloride Cancelled 106 Carbon Dioxide Cancelled 23 Anion Gap Cancelled 9 BUN Cancelled 15 Creatinine Cancelled 1.05 Est GFR ( Amer) Cancelled > 60 Est GFR (Non-Af Amer) Cancelled Glucose Cancelled 90 Calcium Cancelled 9.4 Total Bilirubin Cancelled 0.4 AST Cancelled 18 Alkaline Phosphatase Cancelled 97 Total Protein Cancelled 7.2 Albumin Cancelled 3.6 Impressions: Chest X-Ray 10/06/20 10:19 IMPRESSION: No acute cardiopulmonary process. Assessment & Plan - Diagnosis (1) Abscess of groin, left Is this a current diagnosis for this admission?: Yes (2) Hypertension Qualifiers: Hypertension type: essential hypertension Qualified Code(s): I10 - Essential (primary) hypertension Is this a current diagnosis for this admission?: Yes - Time Time Spent: 30 to 50 Minutes - Inpatient Certification Medical Necessity: Need for IV Antibiotics, Need for Surgery - Plan Summary Plan Summary: 75-year-old male hypertensive post post radiation therapy for prostate cancer 20 years ago, had reaction to Cipro in May 2020 and developed initially and hematoma on the left groin and subsequent CT scan on 1123 showed an abscess about 5 x 4 cm along the intramuscular left gracilis muscle extending to the symphysis pubis suspicious for osteomyelitis of symphysis pubis. Patient had history of intermittent fever and chills. Patient was seen by Dr. Peterson in the clinic and scheduled for incision and drainage. Unfortunately Dr. Peterson is not able to do the procedure and patient is being admitted at this time from the ED for incision and drainage and biopsy of the left groin abscess tomorrow.
[2020-10-06] MEDS ORDERED: DEXTROSE 50%-WATER 25 GM/50 ML DISP.SYRIN IV PRN ×2 (17:02)
[2020-10-06] MEDS ORDERED: DEXTROSE 40% GEL 15 GM TUBE PO PRN ×2 (17:02)
[2020-10-06] MEDS ORDERED: GLUCAGON,HUMAN RECOMB 1 MG INJ SUBCUT PRN (17:02)
--- NOTE | 2020-10-06 19:50 | PDOC H&P ---
History of Present Illness Admission Date/PCP: 10/06/20 16:14 MAGI BEAL MD Patient complains of: Left groin swelling and pain History of Present Illness: KRISTIN GAFFNEY is a 75 year old male patient known to my practice who has been on outpatient management for left groin lesion thought to be cellulitis versus abscess. He was managed with oral antibiotic but lesion eventually became more solidify with surrounding erythema and increasing pain. His recent CT scan evaluation suggested intramuscular abscess formation and he was referred to surgical team. Due to worsening pain and erythema, low grade fever and chills he was advised hospitalization for further evaluation and management. His morbidities include hypertension, GERD, gouty arthritis and history of prostate cancer with indwelling Pedersen catheter. He was seen in consultation by surgicalist, Dr Carpenter, and agreed to surgical intervention with possible I&D with biopsy if indicated. Past Medical History Cardiac Medical History: Reports: Hypertension Denies: Atrial Fibrillation, Coronary Artery Disease, Myocardial Infarction, Hyperlipidema Pulmonary Medical History: Reports: Respiratory Failure - Chronic respiratory failure requiring BiPAP at night Denies: Asthma, Bronchitis, Chronic Obstructive Pulmonary Disease (COPD), Pneumonia Neurological Medical History: Denies: Seizures Endocrine Medical History: Denies: Diabetes Mellitus Type 1, Diabetes Mellitus Type 2, Hyperthyroidism, Hypothyroidism GI Medical History: Denies: Cirrhosis, Hepatitis Musculoskeltal Medical History: Reports: Gout Denies: Arthritis - GOUT Skin Medical History: Denies: Eczema, Psoriasis Psychiatric Medical History: Denies: Depression Hematology: Denies: Anemia, Bleeding Tendencies Past Surgical History Past Surgical History: Reports: Appendectomy, Other - Repair of right retinal detachment Social History Smoking Status: Never Smoker Electronic Cigarette use?: No Frequency of Alcohol Use: Occasional Hx Recreational Drug Use: No Drugs: None Hx Prescription Drug Abuse: No - Advance Directive Resuscitation Status: Full Code Family History Family History: CAD, Hypertension, Malignancy, Other - Kidney disease. denies: DM Parental Family History Reviewed: Yes Children Family History Reviewed: Yes Sibling(s) Family History Reviewed.: Yes Medication/Allergy Home Medications: Allopurinol [Zyloprim 100 mg Tablet] 100 mg PO QHS 10/06/20 Enalapril Maleate 2.5 mg PO QHS 10/06/20 Metoprolol Succinate [Toprol Xl 25 mg Tab.sr] 25 mg PO QHS 10/06/20 Omeprazole Magnesium [Prilosec Otc] 20 mg PO QHS 10/06/20 Allergies/Adverse Reactions: ciprofloxacin [From Cipro] Allergy (Verified 10/06/20 09:48) ampicillin Adverse Reaction (Verified 10/06/20 09:48) Review of Systems Constitutional: PRESENT: chills, fever(s). ABSENT: headache(s), weight gain, weight loss Eyes: ABSENT: visual disturbances Ears: ABSENT: hearing changes Nose, Mouth, and Throat: ABSENT: headache(s), sore throat, vertigo Cardiovascular: ABSENT: chest pain, dyspnea on exertion, edema, orthropnea, p alpitations Respiratory: ABSENT: cough, hemoptysis Gastrointestinal: ABSENT: abdominal pain, constipation, diarrhea, hematemesis, hematochezia, nausea, vomiting Genitourinary: ABSENT: dysuria, hematuria Musculoskeletal: ABSENT: joint swelling Integumentary: PRESENT: erythema, lesions - left groin region. ABSENT: rash, wounds Neurological: ABSENT: abnormal gait, abnormal speech, confusion, dizziness, focal weakness, syncope Psychiatric: ABSENT: anxiety, depression, homidical ideation, suicidal ideation Endocrine: ABSENT: cold intolerance, heat intolerance, polydipsia, polyuria Hematologic/Lymphatic: ABSENT: easy bleeding, easy bruising, lymphadenopathy Allergic/Immunologic: ABSENT: seasonal rhinorrhea Physical Exam Vital Signs: Temp Pulse Resp BP Pulse Ox 97.9 F 69 20 127/69 H 98 10/06/20 09:34 10/06/20 09:34 10/06/20 09:34 10/06/20 09:34 10/06/20 09:34 Intake & Output 10/05/20 10/06/20 10/07/20 06:59 06:59 06:59 Intake Total 1000 Balance 1000 Weight 85.275 kg General appearance: PRESENT: no acute distress Head exam: PRESENT: atraumatic, normocephalic Eye exam: PRESENT: conjunctiva pink, EOMI, PERRLA. ABSENT: scleral icterus Ear exam: PRESENT: normal external ear exam Mouth exam: PRESENT: moist, tongue midline Neck exam: PRESENT: full ROM. ABSENT: carotid bruit, JVD, lymphadenopathy, thyromegaly Respiratory exam: PRESENT: clear to auscultation sara Cardiovascular exam: PRESENT: RRR, +S1, +S2. ABSENT: diastolic murmur, rubs, systolic murmur Vascular exam: PRESENT: normal capillary refill. ABSENT: pallor GI/Abdominal exam: PRESENT: normal bowel sounds, soft. ABSENT: distended, guarding, mass, organolmegaly, rebound, tenderness Rectal exam: PRESENT: deferred Gentrourinary exam: PRESENT: indwelling catheter Extremities exam: PRESENT: tenderness - left groin swollen lesion measured about 10 x 8 cm. ABSENT: pedal edema Musculoskeletal exam: PRESENT: ambulatory Neurological exam: PRESENT: alert, awake, oriented to person, oriented to place, oriented to time, oriented to situation, CN II-XII grossly intact. ABSENT: motor sensory deficit Psychiatric exam: PRESENT: appropriate affect, normal mood. ABSENT: homicidal ideation, suicidal ideation Skin exam: PRESENT: dry, intact, warm. ABSENT: cyanosis, rash Results Laboratory Results: 10/06/20 10:44 10/06/20 12:36 10/06/20 10/06/20 10/06/20 10:44 10:44 12:36 WBC 5.8 RBC 4.38 Hgb 12.2 L Hct 37.7 L MCV 86 MCH 27.8 MCHC 32.3 RDW 17.2 H Plt Count 275 Seg Neutrophils % 55.9 Sodium Cancelled 138.0 Potassium Cancelled 4.9 Chloride Cancelled 106 Carbon Dioxide Cancelled 23 Anion Gap Cancelled 9 BUN Cancelled 15 Creatinine Cancelled 1.05 Est GFR ( Amer) Cancelled > 60 Est GFR (Non-Af Amer) Cancelled Glucose Cancelled 90 Calcium Cancelled 9.4 Total Bilirubin Cancelled 0.4 AST Cancelled 18 Alkaline Phosphatase Cancelled 97 Total Protein Cancelled 7.2 Albumin Cancelled 3.6 Impressions: Chest X-Ray 10/06/20 10:19 IMPRESSION: No acute cardiopulmonary process. Assessment & Plan - Diagnosis (1) Abscess of groin, left Is this a current diagnosis for this admission?: Yes Plan: See admitting attending physician orders for details about care plan. (2) Hypertension Qualifiers: Hypertension type: essential hypertension Qualified Code(s): I10 - Essential (primary) hypertension Is this a current diagnosis for this admission?: Yes Plan: See admitting attending physician orders for details about care plan. (3) GERD (gastroesophageal reflux disease) Is this a current diagnosis for this admission?: Yes Plan: See admitting attending physician orders for details about care plan. (4) Gout Qualifiers: Gout site: unspecified site Gout etiology: unspecified cause Chronicity: unspecified Qualified Code(s): M10.9 - Gout, unspecified Is this a current diagnosis for this admission?: Yes Plan: See admitting attending physician orders for details about care plan. - Time Time Spent: 50 to 70 Minutes Medications reviewed and adjusted accordingly: Yes Anticipated Discharge Disposition: Home with Home Health Anticipated Discharge Timeframe: within 72 hours - Inpatient Certification Based on my medical assessment, after consideration of the patient's comorbidities, presenting symptoms, or acuity I expect that the services needed warrant INPATIENT care.: Yes I certify that my determination is in accordance with my understanding of [employer] 's requirements for reasonable and necessary INPATIENT services [42 CFR 412.3e].: Yes Medical Necessity: Significant Comorbidiites Make Outpatient Treatment Too Risky, Need Close Monitoring Due to Risk of Patient Decompensation, Need For IV Fluids, Need for IV Antibiotics, Need for Surgery, Risk of Complication if Not Cared For in Hospital, Risk of Diagnosis Which Will Require Inpatient Eval/Care/Monitoring Post Hospital Care: D/C [employer] Techn[employer] Documentation - Plan Summary Plan Summary: See admitting attending physician orders for details about care plan.
[2020-10-06] MEDS ORDERED: ENALAPRIL MALEATE 2.5 MG TABLET PO SCH (22:00)
[2020-10-06] MEDS: AMLODIPINE BESYLATE 2.5 MG TABLET PO SCH (22:13)
[2020-10-06] MEDS: METOPROLOL SUCCINATE 25 MG TAB.SR.24H PO SCH (22:14)
[2020-10-06] MEDS: ALLOPURINOL 100 MG TABLET PO SCH (22:14)
[2020-10-06] MEDS: NORMAL SALINE 1000 ML 1,000 ML IV PRN (22:15)
[2020-10-07 00:16] LABS: APPEARANCE,URINE CLEAR; BILIRUBIN,URINE NEGATIVE (NEGATIVE); COLOR,URINE STRAW; GLUCOSE, URINE NEGATIVE (NEGATIVE); KETONES,URINE NEGATIVE (NEGATIVE); PROTEIN,URINE NEGATIVE (NEGATIVE); URINE SPECIFIC GRAVITY 1.009; UROBILINOGEN,URINE NEGATIVE mg/dL (<2.0)
[2020-10-07] MEDS: PANTOPRAZOLE SODIUM 40 MG TABLET.DR PO SCH (05:22)
[2020-10-07] MEDS: SULFAMETHOXAZOLE/TRIMETHOPRIM 160 MG in DEXTROSE 5%-WATER 250 ML IV SCH ×2 (05:47→17:49)
[2020-10-07] MEDS: AMLODIPINE BESYLATE 2.5 MG TABLET PO SCH (10:16)
[2020-10-07] MEDS ORDERED: FENTANYL CITRATE INJ/PF 100 MCG/2 ML AMPUL ONE ×2 (10:38→12:22)
[2020-10-07] MEDS ORDERED: LIDOCAINE 1% INJ-PF (10 MG/ML) 30 ML SDV ONE (10:38)
[2020-10-07] MEDS ORDERED: BUPIVACAINE HCL 0.25 % INJ/PF (2.5 MG/1 ML) 30 ML VIAL ONE (10:38)
[2020-10-07] MEDS ORDERED: DEXAMETHASONE SOD PHOSPHATE INJ 4 MG/1 ML VIAL ONE (10:39)
[2020-10-07] MEDS ORDERED: ONDANSETRON HCL INJ/PF 4 MG/2 ML SDV ONE (10:39)
[2020-10-07] MEDS ORDERED: MIDAZOLAM 2 MG/2 ML INJ ONE (10:39)
[2020-10-07] MEDS ORDERED: PROPOFOL INJ 200 MG/20 ML VIAL IV ONE (10:39)
[2020-10-07] MEDS ORDERED: FENTANYL CITRATE INJ/PF 100 MCG/2 ML AMPUL IV PRN ×3 (11:26)
[2020-10-07] MEDS ORDERED: PROMETHAZINE HCL INJ 25 MG/1 ML VIAL IV PRN (11:26)
[2020-10-07] MEDS ORDERED: DIPHENHYDRAMINE HCL 50 MG/ML VIAL IV PRN (11:26)
[2020-10-07] MEDS ORDERED: MORPHINE SULFATE 10 MG/ML INJ IV PRN (11:26)
--- NOTE | 2020-10-07 12:40 | Operative Report ---
Operative Report DATE OF SURGERY: 10/07/20 PREOPERATIVE DIAGNOSIS: 1. Deep soft tissue infection of the left inner thigh involving skin, subcutaneous tissue, muscle and fascia. 2. History of pelvic seed radiation. 3. Urinary incontinence POSTOPERATIVE DIAGNOSIS: Same with fasciitis, especially for MRSA infection OPERATION: 1. Focused ultrasound of the left inner thigh. 2. Excisional debridement of skin, subcutaneous tissue, fascia of the proximal left inner th igh, with placement of a [place] loop drain mid thigh counterincision SURGEON: RENÉ WYATT ANESTHESIA: GA TISSUE REMOVED OR ALTERED: Skin, subcutaneous tissue, fascia left inner thigh COMPLICATIONS: None ESTIMATED BLOOD LOSS: 75 cc INTRAOPERATIVE FINDINGS: See below PROCEDURE: Patient was taken to the preop holding area to the main operating room where general anesthesia was induced via LMA. The condom catheter was switched over to a 14 [place] indwelling urethral catheter. Patient urine around this catheter during the prep. The patient was frog-legged, hair shaved from the left groin, left proximal inner thigh, then the scrotum and left thigh were prepped and draped sterile fashion with Betadine. Surgical plan and surgical timeout were conducted. Focused ultrasound of the left thigh was performed. There were extensive areas of hypoechogenicity consistent with fluid in the subcutaneous tissue. There was a large pocket of fluid in the deep tissue of the extreme inner thigh several centimeters below the medial inguinal crease. The findings are consistent with a previous CT scan showing fluid within the gracilis muscle. The skin overlying this area was anesthetized with 1% plain lidocaine. A pproximately 8 cm long incision was made longitudinally along the inner proximal thigh. We immediately got into thick hard wound the subcutaneous tissue consistent with MRSA. Culture taken for Gram stain and sensitivity. Using a combination of finger, hemostat, [place], and suction, loculations which were very thick were broken up involving the subcutaneous tissue below the principal incision. Then penetrated deeply towards the gracilis muscle into the large pocket of fluid here. This was seropurulent in consistency. The pocket tracked distally towards the medial aspect of the mid to distal inner thigh. A counterincision was made over the medial inner thigh approximately 8 to 10 cm distal to the initial incision. A [place] loop drain was then placed between the initial incision and a counterincision and tied into a knot. We now irrigated all cavities involving the can up loculated areas previously described. Excisional debridement of skin, subcutaneous tissue in chunks, and small fibrous fascial elements completed mostly with electrocautery. The dissection did not extend into the pubic area due to the wound the nature of the tissue, and the fact that the patient had previous radiation to the pelvis with seed placement. Obvious infected skin and subcutaneous tissue was excised with #10 blade. We irrigated the wound cavity out, and the interstices between several muscle groups in the inner thigh. I felt the operation was essentially complete. We did check for mechanical bleeding and small spots were cauterized as encountered. The wound was packed open using Betadine soaked Curlex, approximately three quarters in the principal wound, a smaller fragment in the counterincision wound. 4 x 4's Curlex applied. Patient was extubated and taken to the recovery room in stable condition. Total elapsed time approximately 30 minutes Plan: 1. Follow-up on cultures 2. Start dressing changes tomorrow; reassess wound and determine whether additional debridement is required 3. Discussed the above with Dr. Caballero and patient's .
[2020-10-07] MEDS: OXYCODONE-ACETAMINOPHEN 5-325 MG TABLET PO PRN ×2 (13:52→17:59)
[2020-10-07] MEDS ORDERED: VANCOMYCIN HCL 0 MG in DEXTROSE 5%-WATER 250 ML IV NR (15:15)
--- NOTE | 2020-10-07 15:17 | PDOC PROGRESS REPORT ---
Subjective Date:: 10/07/20 Subjective:: Patient denied any chest pain or difficulty with breathing. Left groin upper thi gh lesion remain same with surrounding hardness and redness. No significant pain. schedule for surgical intervention later today. Reason For Visit: LEFT GROIN ABSCESS,HTN,GERD,COUTY ARTHRITIS Physical Exam Vital Signs: Temp Pulse Resp BP Pulse Ox 98.2 F 73 19 132/74 H 99 10/07/20 08:03 10/07/20 08:03 10/07/20 08:03 10/07/20 08:03 10/07/20 08:03 Intake & Output 10/06/20 10/07/20 10/08/20 06:59 06:59 06:59 Intake Total 1000 260 Output Total 1200 Balance -200 260 Weight 86.7 kg General appearance: PRESENT: no acute distress Head exam: PRESENT: atraumatic, normocephalic Eye exam: PRESENT: conjunctiva pink. ABSENT: scleral icterus Mouth exam: PRESENT: moist Respiratory exam: PRESENT: clear to auscultation sara Cardiovascular exam: PRESENT: RRR, +S1, +S2. ABSENT: diastolic murmur, rubs, systolic murmur Vascular exam: ABSENT: pallor GI/Abdominal exam: PRESENT: normal bowel sounds, soft. ABSENT: tenderness Gentrourinary exam: PRESENT: indwelling catheter Extremities exam: PRESENT: other - let groin region lesion remain same in character.. ABSENT: pedal edema Neurological exam: PRESENT: alert, awake, oriented to person, oriented to place, oriented to time, oriented to situation, CN II-XII grossly intact. ABSENT: motor sensory deficit Psychiatric exam: PRESENT: appropriate affect, normal mood. ABSENT: homicidal ideation, suicidal ideation Skin exam: PRESENT: dry, warm, other - left groin lesion with surrounding black thema, induration and central region fluctance. Results Laboratory Results: 10/06/20 10:44 10/06/20 12:36 10/06/20 10/06/20 10/06/20 10:44 10:44 12:36 WBC 5.8 RBC 4.38 Hgb 12.2 L Hct 37.7 L MCV 86 MCH 27.8 MCHC 32.3 RDW 17.2 H Plt Count 275 Seg Neutrophils % 55.9 Sodium Cancelled 138.0 Potassium Cancelled 4.9 Chloride Cancelled 106 Carbon Dioxide Cancelled 23 Anion Gap Cancelled 9 BUN Cancelled 15 Creatinine Cancelled 1.05 Est GFR ( Amer) Cancelled > 60 Est GFR (Non-Af Amer) Cancelled Glucose Cancelled 90 Calcium Cancelled 9.4 Total Bilirubin Cancelled 0.4 AST Cancelled 18 Alkaline Phosphatase Cancelled 97 Total Protein Cancelled 7.2 Albumin Cancelled 3.6 Urine Color Urine Appearance Urine pH Ur Specific [place] Urine Protein Urine Glucose (UA) Urine Ketones Urine Blood Urine RBC (Auto) 10/06/20 23:56 WBC RBC Hgb Hct MCV MCH MCHC RDW Plt Count Seg Neutrophils % Sodium Potassium Chloride Carbon Dioxide Anion Gap BUN Creatinine Est GFR ( Amer) Est GFR (Non-Af Amer) Glucose Calcium Total Bilirubin AST Alkaline Phosphatase Total Protein Albumin Urine Color STRAW Urine Appearance CLEAR Urine pH 7.0 Ur Specific [place] 1.009 Urine Protein NEGATIVE Urine Glucose (UA) NEGATIVE Urine Ketones NEGATIVE Urine Blood NEGATIVE Urine RBC (Auto) 3 Impressions: Chest X-Ray 10/06/20 10:19 IMPRESSION: No acute cardiopulmonary process. Assessment & Plan - Diagnosis (1) Abscess of groin, left Is this a current diagnosis for this admission?: Yes (2) Hypertension Qualifiers: Hypertension type: essential hypertension Qualified Code(s): I10 - Essential (primary) hypertension Is this a current diagnosis for this admission?: Yes (3) GERD (gastroesophageal reflux disease) Is this a current diagnosis for this admission?: Yes (4) Gout Qualifiers: Gout site: unspecified site Gout etiology: unspecified cause Chronicity: unspecified Qualified Code(s): M10.9 - Gout, unspecified Is this a current diagnosis for this admission?: Yes - Time Time Spent with patient: 25-34 minutes Level of Care: MEDICAL Medications reviewed and adjusted accordingly: Yes Anticipated discharge: Home with Homehealth Anticipated DC Timeframe: within 72 hours - Inpatient Certification Based on my medical assessment, after consideration of the patient's comorbidities, presenting symptoms, or acuity I expect that the services needed warrant INPATIENT care.: Yes I certify that my determination is in accordance with my understanding of Medicare's requirements for reasonable and necessary INPATIENT services [42 CFR 412.3e].: Yes Medical Necessity: Significant Comorbidiites Make Outpatient Treatment Too Ri aleyda, Need Close Monitoring Due to Risk of Patient Decompensation, Need For IV Fluids, Need For Continuous Telemetry Monitoring, Need for IV Antibiotics, Need for Surgery, Risk of Complication if Not Cared For in Hospital, Risk of Diagnosis Which Will Require Inpatient Eval/Care/Monitoring 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 Follow up with surgicalist about operative findings.
[2020-10-07] MEDS: DOCUSATE SODIUM 100 MG CAPSULE PO SCH (17:49)
[2020-10-07] MEDS: ALLOPURINOL 100 MG TABLET PO SCH (22:05)
[2020-10-07] MEDS: METOPROLOL SUCCINATE 25 MG TAB.SR.24H PO SCH (22:05)
[2020-10-07] MEDS: VANCOMYCIN HCL 1,000 MG in DEXTROSE 5%-WATER 250 ML IV SCH (22:06)
[2020-10-08 05:26] LABS: ABSOLUTE MONOCYTES (AUTO) 0.4 10^3/uL (0.1-1.4); BASOPHILS % (AUTO) 0.2 % (0-2); HEMATOCRIT 32.6 % (37.9-51.0); HEMOGLOBIN 10.9 g/dL (13.5-17.0); LYMPHOCYTES % (AUTO) 10.6 % (13-45); MEAN CORPUSCULAR HGB CONC 33.4 g/dL (32.0-36.0); MEAN CORPUSCULAR VOLUME 84 fl (80-97); MONOCYTES % (AUTO) 4.1 % (3-13); PLATELET COUNT 264 10^3/uL (150-450); RED BLOOD COUNT 3.88 10^6/uL (4.35-5.55); RED CELL DISTRIBUTION WIDTH 16.9 % (11.5-14.0); SEGMENTED NEUTROPHILS % (AUTO) 85.1 % (42-78); TOTAL CELLS COUNTED % (AUTO) 100 %; WHITE BLOOD COUNT 9.4 10^3/uL (4.0-10.5)
[2020-10-08] MEDS: SULFAMETHOXAZOLE/TRIMETHOPRIM 160 MG in DEXTROSE 5%-WATER 250 ML IV SCH (05:26)
[2020-10-08] MEDS: PANTOPRAZOLE SODIUM 40 MG TABLET.DR PO SCH (05:28)
[2020-10-08] MEDS: OXYCODONE-ACETAMINOPHEN 5-325 MG TABLET PO PRN ×2 (05:28→08:53)
[2020-10-08 05:47] LABS: ALBUMIN 3.2 g/dL (3.5-5.0); ALKALINE PHOSPHATASE 82 U/L (38-126); ANION GAP 10 (5-19); ASPARTATE AMINO TRANSFERASE 15 U/L (17-59); BILIRUBIN,DIRECT 0.2 mg/dL (0.0-0.4); BILIRUBIN,TOTAL 0.4 mg/dL (0.2-1.3); BLOOD UREA NITROGEN 16 mg/dL (7-20); CALCIUM 9.2 mg/dL (8.4-10.2); CARBON DIOXIDE 21 mmol/L (22-30); CHLORIDE 104 mmol/L (98-107); GLUCOSE 143 mg/dL (75-110); POTASSIUM 5.1 mmol/L (3.6-5.0); TOTAL PROTEIN 6.5 g/dL (6.3-8.2)
--- NOTE | 2020-10-08 09:32 | PDOC PROGRESS REPORT ---
Subjective Date:: 10/08/20 Reason For Visit: LEFT GROIN ABSCESS,HTN,GERD,COUTY ARTHRITIS Patient did well overnight, pain managed, moderate drainage from the left groin and leg wounds. Physical Exam Vital Signs: Temp Pulse Resp BP Pulse Ox 97.9 F 78 20 109/71 98 10/08/20 08:31 10/08/20 08:31 10/08/20 08:31 10/08/20 08:31 10/08/20 08:31 Intake & Output 10/07/20 10/08/20 10/09/20 06:59 06:59 06:59 Intake Total 1000 3820 Output Total 1200 1765 Balance -200 2055 Weight 86.7 kg 87.6 kg General appearance: PRESENT: no acute distress Extremities exam: PRESENT: other - All dressings were removed, all packing removed by Dr. Majano at bedside, tolerated well. No foul smell or drainage. Skin flaps viable. Scrotal erythema diminished. Wounds irrigated and repacked with portions of Curlex gauze Results Laboratory Results: 10/08/20 04:40 10/08/20 04:40 10/08/20 10/08/20 04:40 04:40 WBC 9.4 RBC 3.88 L Hgb 10.9 L Hct 32.6 L MCV 84 MCH 28.0 MCHC 33.4 RDW 16.9 H Plt Count 264 Seg Neutrophils % 85.1 H Sodium 135.0 L Potassium 5.1 H Chloride 104 Carbon Dioxide 21 L Anion Gap 10 BUN 16 Creatinine 1.22 Est GFR ( Amer) > 60 Glucose 143 H Calcium 9.2 Total Bilirubin 0.4 AST 15 L Alkaline Phosphatase 82 Total Protein 6.5 Albumin 3.2 L 10/06/20 16:39 Blood Blood Culture (PCR) - Final 10/06/20 23:56 Clean Catch Midstream Urine Culture - Final Escherichia Coli Impressions: Chest X-Ray 10/06/20 10:19 IMPRESSION: No acute cardiopulmonary process. Assessment & Plan - Diagnosis (1) Abscess of groin, left Is this a current diagnosis for this admission?: Yes Plan: Impression: Patient is 1 day postop vigorous debridement left groin and inner thigh soft tissue infection with loop drain placement, tolerated dressing changes at bedside this morning very well, no indication for further debridement. Septic source coming under control Plan: 1. Follow-up on wound cultures; continue vancomycin and Bactrim 2. Start daily dressing changes; orders placed for nurses to perform 3. Explained above to patient. Wound will take 4 to 6 weeks to fill in. Anticipate downsizing loop drain in 1 week 4. Hopefully can discharge patient with outpatient p.o. antibiotics in 48 hours. (2) Gout Qualifiers: Gout site: unspecified site Gout etiology: unspecified cause Chronicity: unspecified Qualified Code(s): M10.9 - Gout, unspecified Is this a current diagnosis for this admission?: Yes (3) Hypertension Qualifiers: Hypertension type: essential hypertension Qualified Code(s): I10 - Essential (primary) hypertension (4) Myopathy Is this a current diagnosis for this admission?: Yes - Time Anticipated Discharge Disposition: Home, Self Care Anticipated Discharge Timeframe: within 48 hours
[2020-10-08] MEDS: ENOXAPARIN SODIUM INJ 40 MG/0.4 ML DISP.SYRIN SUBCUT SCH (09:58)
[2020-10-08] MEDS: DOCUSATE SODIUM 100 MG CAPSULE PO SCH ×2 (09:58→17:11)
[2020-10-08] MEDS: AMLODIPINE BESYLATE 2.5 MG TABLET PO SCH (09:58)
[2020-10-08] MEDS: VANCOMYCIN HCL 1,000 MG in DEXTROSE 5%-WATER 250 ML IV SCH ×2 (09:59→21:31)
--- NOTE | 2020-10-08 15:57 | PDOC PROGRESS REPORT ---
Subjective Date:: 10/08/20 Subjective:: Patient denied any chest pain or difficulty with breathing. s/p Left groin upper thigh lesion I&D with packing. He denied any significant pain. No fever or chills. No nausea, vomiting, or abdominal pain. Reason For Visit: LEFT GROIN ABSCESS,HTN,GERD,COUTY ARTHRITIS Physical Exam Vital Signs: Temp Pulse Resp BP Pulse Ox 97.8 F 73 20 123/65 97 10/08/20 13:03 10/08/20 13:03 10/08/20 13:03 10/08/20 13:03 10/08/20 13:03 Intake & Output 10/07/20 10/08/20 10/09/20 06:59 06:59 06:59 Intake Total 1000 3820 746 Output Total 1200 1765 Balance -200 2055 746 Weight 86.7 kg 87.6 kg Physical Exam: General appearance: PRESENT: no acute distress Head exam: PRESENT: atraumatic, normocephalic Eye exam: PRESENT: conjunctiva pink. ABSENT: pallor, sclera icterus Mouth exam: PRESENT: moist Respiratory exam: PRESENT: clear to auscultation sara Cardiovascular exam: PRESENT: RRR, +S1, +S2. ABSENT: diastolic murmur, rubs, systolic murmur GI/Abdominal exam: PRESENT: normal bowel sounds, soft. ABSENT: tenderness Gentrourinary exam: PRESENT: indwelling catheter Extremities exam: PRESENT: other - let groin region lesion remain same in character.. ABSENT: pedal edema Neurological exam: PRESENT: alert, awake, oriented to person, oriented to place, oriented to time, oriented to situation, CN II-XII grossly intact. ABSENT: motor sensory deficit Psychiatric exam: PRESENT: appropriate affect, normal mood. ABSENT: homicidal ideation, suicidal ideation Skin exam: PRESENT: dry, warm, other - left groin lesion dressing satisfactory. Results Laboratory Results: 10/08/20 04:40 10/08/20 04:40 10/08/20 10/08/20 04:40 04:40 WBC 9.4 RBC 3.88 L Hgb 10.9 L Hct 32.6 L MCV 84 MCH 28.0 MCHC 33.4 RDW 16.9 H Plt Count 264 Seg Neutrophils % 85.1 H Sodium 135.0 L Potassium 5.1 H Chloride 104 Carbon Dioxide 21 L Anion Gap 10 BUN 16 Creatinine 1.22 Est GFR ( Amer) > 60 Glucose 143 H Calcium 9.2 Total Bilirubin 0.4 AST 15 L Alkaline Phosphatase 82 Total Protein 6.5 Albumin 3.2 L 10/06/20 16:39 Blood Blood Culture (PCR) - Final 10/06/20 23:56 Clean Catch Midstream Urine Culture - Final Escherichia Coli Impressions: Chest X-Ray 10/06/20 10:19 IMPRESSION: No acute cardiopulmonary process. Assessment & Plan - Diagnosis (1) Abscess of groin, left Is this a current diagnosis for this admission?: Yes (2) Hypertension Qualifiers: Hypertension type: essential hypertension Qualified Code(s): I10 - Essential (primary) hypertension Is this a current diagnosis for this admission?: Yes (3) GERD (gastroesophageal reflux disease) Is this a current diagnosis for this admission?: Yes (4) Gout Qualifiers: Gout site: unspecified site Gout etiology: unspecified cause Chronicity: unspecified Qualified Code(s): M10.9 - Gout, unspecified Is this a current diagnosis for this admission?: Yes (5) E. coli UTI (urinary tract infection) Is this a current diagnosis for this admission?: Yes Plan: Start on IV Aztreonam coverage. (6) Bacterial infection due to Clostridium perfringens Is this a current diagnosis for this admission?: Yes Plan: Start on IV Clindamycin coverage. D/C IV Bactrim. Follow up on culture findings regarding Vancomycin usage. - Time Time Spent with patient: 25-34 minutes Level of Care: MEDICAL Medications reviewed and adjusted accordingly: Yes Anticipated discharge: Home with Homehealth Anticipated DC Timeframe: within 72 hours - Inpatient Certification Based on my medical assessment, after consideration of the patient's comorbidities, presenting symptoms, or acuity I expect that the services needed warrant INPATIENT care.: Yes I certify that my determination is in accordance with my understanding of Medicare's requirements for reasonable and necessary INPATIENT services [42 CFR 412.3e].: Yes Medical Necessity: Significant Comorbidiites Make Outpatient Treatment Too Risky, Need Close Monitoring Due to Risk of Patient Decompensation, Need For IV Fluids, Need for IV Antibiotics, Risk of Complication if Not Cared For in Hospital, Risk of Diagnosis Which Will Require Inpatient Eval/Care/Monitoring Post Hospital 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 D/C IV Bactrim. Start on IV Clindamycin and Aztreonam coverage. Follow up on culture findings.
[2020-10-08] MEDS: CLINDAMYCIN 600 MG/D5W RTU 600 MG/50 ML RTUPB IV SCH (17:10)
[2020-10-08] MEDS: NORMAL SALINE 1000 ML 1,000 ML IV PRN (17:11)
[2020-10-08] MEDS: ALLOPURINOL 100 MG TABLET PO SCH (21:31)
[2020-10-08] MEDS: METOPROLOL SUCCINATE 25 MG TAB.SR.24H PO SCH (21:31)
[2020-10-09] MEDS: CLINDAMYCIN 600 MG/D5W RTU 600 MG/50 ML RTUPB IV SCH ×3 (01:19→17:37)
--- NOTE | 2020-10-09 01:24 | CDI QUERY ---
<ALEC ROBBINS - Last Filed: 10/09/20 01:23> CDI Query CDI Review: We are seeking further clarification of documentation to reflect the severity of illness of your patient. Noted in H&P: history of prostate cancer with indwelling Pedersen catheter Per Progress Notes: E. coli UTI (urinary tract infection) Is this a current diagnosis for this admission?: Yes Plan: Start on IV Aztreonam coverage. Based on your medical judgement, can you further clarify in the Progress Notes and carry through Discharge Summary: UTI 2/2 to indwelling Pedersen catheter present on admission UTI NOT 2/2 to indwelling Pedersen catheter Unable to determine Other Thank you for your consideration. GABBIE Hazel RN Clinical Kinesiology Internship Physician Advisor <MAGI BEAL - Last Filed: 10/09/20 08:46> CDI Query Agree with Query: Yes - unable to determine.
[2020-10-09] MEDS: PANTOPRAZOLE SODIUM 40 MG TABLET.DR PO SCH (05:35)
--- NOTE | 2020-10-09 07:58 | PDOC PROGRESS REPORT ---
Subjective Date:: 10/09/20 Subjective:: feels ok Reason For Visit: LEFT GROIN ABSCESS,HTN,GERD,COUTY ARTHRITIS Physical Exam Vital Signs: Temp Pulse Resp BP Pulse Ox 98.0 F 68 16 139/71 H 99 10/09/20 07:52 10/09/20 00:19 10/09/20 00:19 10/09/20 00:19 10/09/20 00:19 Intake & Output 10/08/20 10/09/20 10/10/20 06:59 06:59 06:59 Intake Total 3820 1862 Output Total 1768 2600 Balance 2054 Weight 87.6 kg 87.6 kg General appearance: PRESENT: no acute distress Head exam: PRESENT: normocephalic Eye exam: PRESENT: EOMI Ear exam: PRESENT: normal external ear exam Mouth exam: PRESENT: moist Neck exam: PRESENT: full ROM Respiratory exam: PRESENT: clear to auscultation sara Cardiovascular exam: PRESENT: RRR Pulses: PRESENT: normal radial pulses, normal femoral pulses Breast: PRESENT: Normal GI/Abdominal exam: PRESENT: soft Rectal exam: PRESENT: deferred Extremities exam: PRESENT: other - left thigh wound clean, granulating, drain in place Neurological exam: PRESENT: alert Psychiatric exam: PRESENT: appropriate affect Skin exam: PRESENT: dry Results Laboratory Results: 10/08/20 04:40 10/08/20 04:40 10/06/20 16:39 Blood Blood Culture (PCR) - Final 10/06/20 23:56 Clean Catch Midstream Urine Culture - Final Escherichia Coli Impressions: Chest X-Ray 10/06/20 10:19 IMPRESSION: No acute cardiopulmonary process. Assessment & Plan - Time Anticipated Discharge Disposition: Home, Self Care Anticipated Discharge Timeframe: within 48 hours - Plan Summary Plan Summary: s/p i and d of thigh abscess cults pending + blood cults for clostridia on abx surgical wound clean would proceed with wet to dry dressing changes once a day with saline soaked gauze ok from surgery standpt for discharge home on daily dressing changes home health ?? pt can f/u iwth DR Faustin in 1 wk after dc for drain management surgery will sign off at this time reconsult if needed
[2020-10-09] MEDS: ENOXAPARIN SODIUM INJ 40 MG/0.4 ML DISP.SYRIN SUBCUT SCH (09:30)
[2020-10-09] MEDS: DOCUSATE SODIUM 100 MG CAPSULE PO SCH ×2 (09:30→17:37)
[2020-10-09] MEDS: AMLODIPINE BESYLATE 2.5 MG TABLET PO SCH (09:30)
[2020-10-09] MEDS ORDERED: ACETAMINOPHEN 325 MG TABLET ONE (09:31)
[2020-10-09] MEDS: VANCOMYCIN HCL 1,000 MG in DEXTROSE 5%-WATER 250 ML IV SCH ×2 (09:31→21:09)
--- NOTE | 2020-10-09 09:46 | PDOC PROGRESS REPORT ---
Subjective Date:: 10/09/20 Subjective:: No chest pain or difficulty with breathing. No fever or chills. No nausea, vomit ing, or abdominal pain. Reason For Visit: LEFT GROIN ABSCESS,HTN,GERD,COUTY ARTHRITIS Physical Exam Vital Signs: Temp Pulse Resp BP Pulse Ox 98.1 F 76 17 114/57 L 99 10/09/20 09:02 10/09/20 09:02 10/09/20 09:02 10/09/20 09:02 10/09/20 09:02 Intake & Output 10/08/20 10/09/20 10/10/20 06:59 06:59 06:59 Intake Total 3820 1862 Output Total 1765 2600 Balance 2054 - Weight 87.6 kg 87.6 kg Physical Exam: General appearance: PRESENT: no acute distress Head exam: PRESENT: atraumatic, normocephalic Eye exam: PRESENT: conjunctiva pink. ABSENT: pallor, sclera icterus Mouth exam: PRESENT: moist Respiratory exam: PRESENT: clear to auscultation sara Cardiovascular exam: PRESENT: RRR, +S1, +S2. ABSENT: diastolic murmur, rubs, systolic murmur GI/Abdominal exam: PRESENT: normal bowel sounds, soft. ABSENT: tenderness Genitourinary exam: PRESENT: condom catheter in use for incontinence management following prostate cancer surgery. Extremities exam: PRESENT: other - let groin region lesion remain same in character.. ABSENT: pedal edema Neurological exam: PRESENT: alert, awake, oriented to person, oriented to place, oriented to time, oriented to situation, CN II-XII grossly intact. ABSENT: motor sensory deficit Psychiatric exam: PRESENT: appropriate affect, normal mood. ABSENT: homicidal ideation, suicidal ideation Skin exam: PRESENT: dry, warm, other - left groin lesion dressing satisfactory. Results Laboratory Results: 10/08/20 04:40 10/08/20 04:40 10/06/20 16:39 Blood Blood Culture (PCR) - Final 10/06/20 23:56 Clean Catch Midstream Urine Culture - Final Escherichia Coli Impressions: Chest X-Ray 10/06/20 10:19 IMPRESSION: No acute cardiopulmonary process. Assessment & Plan - Diagnosis (1) Abscess of groin, left Is this a current diagnosis for this admission?: Yes (2) Hypertension Qualifiers: Hypertension type: essential hypertension Qualified Code(s): I10 - Essential (primary) hypertension Is this a current diagnosis for this admission?: Yes (3) GERD (gastroesophageal reflux disease) Is this a current diagnosis for this admission?: Yes (4) Gout Qualifiers: Gout site: unspecified site Gout etiology: unspecified cause Chronicity: unspecified Qualified Code(s): M10.9 - Gout, unspecified Is this a current diagnosis for this admission?: Yes (5) E. coli UTI (urinary tract infection) Is this a current diagnosis for this admission?: Yes (6) Bacterial infection due to Clostridium perfringens Is this a current diagnosis for this admission?: Yes - Time Time Spent with patient: 25-34 minutes Level of Care: MEDICAL Medications reviewed and adjusted accordingly: Yes Anticipated discharge: Home with Homehealth Anticipated DC Timeframe: within 48 hours - Inpatient Certification Based on my medical assessment, after consideration of the patient's comorbidities, presenting symptoms, or acuity I expect that the services needed warrant INPATIENT care.: Yes I certify that my determination is in accordance with my understanding of Medicare's requirements for reasonable and necessary INPATIENT services [42 CFR 412.3e].: Yes Medical Necessity: Significant Comorbidiites Make Outpatient Treatment Too Risky, Need Close Monitoring Due to Risk of Patient Decompensation, Need For IV Fluids, Need for IV Antibiotics, Risk of Complication if Not Cared For in Hospital, Risk of Diagnosis Which Will Require Inpatient Eval/Care/Monitoring 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 Start on Nitrofurantoin 100 mg po bid. Maintain on IV Vancomycin and Clindamycin coverage with intent to adjust the antibiotic and consider oral route as appropriate.
[2020-10-09] MEDS ORDERED: ACETAMINOPHEN 325 MG TABLET PO PRN (10:10)
[2020-10-09] MEDS: NITROFURANTOIN MONOHYD/M-CRYST 100 MG CAPSULE PO SCH ×2 (10:10→21:08)
[2020-10-09 10:25] LABS: VANCOMYCIN,TROUGH 12.7 ug/mL (5.0-20.0)
[2020-10-09] MEDS: METOPROLOL SUCCINATE 25 MG TAB.SR.24H PO SCH (21:08)
[2020-10-09] MEDS: ALLOPURINOL 100 MG TABLET PO SCH (21:08)
[2020-10-10] MEDS: CLINDAMYCIN 600 MG/D5W RTU 600 MG/50 ML RTUPB IV SCH ×3 (04:44→18:24)
[2020-10-10] MEDS: PANTOPRAZOLE SODIUM 40 MG TABLET.DR PO SCH (05:23)
[2020-10-10] MEDS: AMLODIPINE BESYLATE 2.5 MG TABLET PO SCH (11:35)
[2020-10-10] MEDS: ENOXAPARIN SODIUM INJ 40 MG/0.4 ML DISP.SYRIN SUBCUT SCH (11:35)
[2020-10-10] MEDS: DOCUSATE SODIUM 100 MG CAPSULE PO SCH ×2 (11:35→18:24)
[2020-10-10] MEDS: NITROFURANTOIN MONOHYD/M-CRYST 100 MG CAPSULE PO SCH ×2 (11:36→21:20)
[2020-10-10] MEDS: VANCOMYCIN HCL 1,000 MG in DEXTROSE 5%-WATER 250 ML IV SCH ×2 (11:36→21:21)
[2020-10-10] MEDS: ALLOPURINOL 100 MG TABLET PO SCH (21:20)
[2020-10-10] MEDS: METOPROLOL SUCCINATE 25 MG TAB.SR.24H PO SCH (21:20)
--- NOTE | 2020-10-10 22:14 | PDOC PROGRESS REPORT ---
Subjective Date:: 10/10/20 Subjective:: Patient was seen by the bedside, the abscess demonstrated polymicrobial, on IV a ntibiotic, I explained to patient that he need to stay Because of the varied sensitivity of the organism to different antibiotic Reason For Visit: LEFT GROIN ABSCESS,HTN,GERD,COUTY ARTHRITIS Physical Exam Vital Signs: Temp Pulse Resp BP Pulse Ox 98.3 F 85 16 131/62 H 97 10/10/20 20:34 10/10/20 20:34 10/10/20 20:34 10/10/20 20:34 10/10/20 20:34 Intake & Output 10/09/20 10/10/20 10/11/20 06:59 06:59 06:59 Intake Total 1862 2276 1178 Output Total 2600 3050 1400 Balance -738 -774 -222 Weight 87.6 kg 87.6 kg General appearance: PRESENT: no acute distress Eye exam: PRESENT: PERRLA Respiratory exam: PRESENT: clear to auscultation sara Cardiovascular exam: PRESENT: +S1, +S2 GI/Abdominal exam: PRESENT: soft Neurological exam: PRESENT: alert Results Laboratory Results: 10/08/20 04:40 10/08/20 04:40 10/06/20 16:39 Blood Blood Culture (PCR) - Final 10/06/20 16:39 Blood Blood Culture - Final Clostridium Perfringens Stenotrophomonas Maltophilia 10/07/20 11:39 Groin - Left Gram Stain - Final 10/07/20 11:39 Groin - Left Wound Culture - Final Escherichia Coli Enterococcus Faecalis(Group D) C.albicans/C.dubliniensis No Anaerobic Organisms Impressions: Chest X-Ray 10/06/20 10:19 IMPRESSION: No acute cardiopulmonary process. Assessment & Plan - Diagnosis (1) Abscess of groin, left Is this a current diagnosis for this admission?: Yes Plan: Continue IV antibiotic (2) E. coli UTI (urinary tract infection) Is this a current diagnosis for this admission?: Yes (3) Bacterial infection due to Clostridium perfringens Is this a current diagnosis for this admission?: Yes - Time Time Spent with patient: 25-34 minutes Level of Care: MEDICAL Medications reviewed and adjusted accordingly: Yes Anticipated discharge: Home Anticipated DC Timeframe: Other
[2020-10-11] MEDS: CLINDAMYCIN 600 MG/D5W RTU 600 MG/50 ML RTUPB IV SCH ×3 (02:11→17:52)
[2020-10-11] MEDS: PANTOPRAZOLE SODIUM 40 MG TABLET.DR PO SCH (06:37)
[2020-10-11] MEDS: ENOXAPARIN SODIUM INJ 40 MG/0.4 ML DISP.SYRIN SUBCUT SCH (10:22)
[2020-10-11] MEDS: AMLODIPINE BESYLATE 2.5 MG TABLET PO SCH (10:22)
[2020-10-11] MEDS: NITROFURANTOIN MONOHYD/M-CRYST 100 MG CAPSULE PO SCH ×2 (10:22→21:19)
[2020-10-11] MEDS: DOCUSATE SODIUM 100 MG CAPSULE PO SCH ×2 (10:23→17:41)
[2020-10-11] MEDS: VANCOMYCIN HCL 1,000 MG in DEXTROSE 5%-WATER 250 ML IV SCH ×2 (15:40→21:21)
--- NOTE | 2020-10-11 15:42 | RADIOLOGY REPORT (SQ) ---
EXAM DESCRIPTION: PICC INSERTION IMAGES COMPLETED DATE/TIME: 10/11/2020 3:33 pm REASON FOR STUDY: For home IV Antibiotic infusion therapy COMPARISON: None. FLUOROSCOPY TIME: 24 seconds. 1 image saved to PACS. TECHNIQUE: Fluoroscopic and Ultrasound Guided PICC Placement. LIMITATIONS: None. PROCEDURE: After written consent and assessment were obtained, the patient was brought into the fluo roscopy room and placed supine on the table. Ultrasound evaluation of potential access sites were per formed. After successfully identifying a patent left upper extremity basilic, the left upper arm was prepped and draped in a sterile fashion along with the ultrasound probe. The entry site was anestheti zed with 1% lidocaine. A 21 gauge 7 cm needle was advanced through the skin and into the left basilic vein under live ultrasound guidance. An ultrasound image was saved to PACS confirming access site. A.018 inch guidewire was then inserted through the needle and into the venous system. The needle was then removed and an 11 blade scalpel was used to make a 1 cm skin incision. A 5 Fr peel-away sheath was advanced over the wire and into the venous system. A measurement was then made using the existin g wire and live fluoroscopic guidance. The wire was then removed and trimmed. The PICC was advanced t hrough the peel-away sheath and into the venous system. The peel-away sheath was removed and the cath eter was adhered to the patients arm with a stat lock. The catheter was then aspirated and flushed an d a sterile bandage was placed over the access site. A fluoroscopic spot image was saved to PACS con firming the catheter tip within the SVC. IMPRESSION: SUCCESSFUL PLACEMENT OF A 5 FR DUAL LUMEN 51 CM PICC IN THE LEFT BASILIC VEIN. COMMENT: Patient medication list reviewed: Yes- Quality ID# 130:Eligible professional attests to doc umenting in the medical record they obtained, updated, or reviewed the patient's current medications. . Quality ID 145: Final reports for procedures using fluoroscopy that document radiation exposure vinicio elba, or exposure time and number of fluorographic images (if radiation exposure indices are not avail able) Quality ID #76: The patient was prepped and draped using maximum sterile barrier technique including cap, mask, sterile gown, sterile gloves, a large sterile sheet, hand hygiene, and 2% Chlorhexidine fo r cutaneous antisepsis. When ultrasound is used, sterile ultrasound techniques are followed requiring sterile gel and sterile probes. TECHNICAL DOCUMENTATION: JOB ID: [id number] 2010 [employer]- All Rights Reserved Reading location - IP/workstation name: [email or web address]
[2020-10-11] MEDS ORDERED: NORMAL SALINE 10 ML SDV (AFTER EACH USE) IV PRN (16:30)
--- NOTE | 2020-10-11 18:06 | PDOC PROGRESS REPORT ---
Subjective Date:: 10/11/20 Subjective:: No chest pain or difficulty with breathing. No fever or chills. His culture resu lts show very complex bacterial growth from his wound, blood and urine samples. No nausea, vomiting, or abdominal pain. Reason For Visit: LEFT GROIN ABSCESS,HTN,GERD,COUTY ARTHRITIS Physical Exam Vital Signs: Temp Pulse Resp BP Pulse Ox 97.9 F 81 17 117/60 97 10/11/20 12:49 10/11/20 12:49 10/11/20 12:49 10/11/20 12:49 10/11/20 12:49 Intake & Output 10/10/20 10/11/20 10/12/20 06:59 06:59 06:59 Intake Total 2276 2078 240 Output Total 3050 2700 350 Balance -774 -622 -110 Weight 87.6 kg 87.6 kg Physical Exam: General appearance: PRESENT: no acute distress Head exam: PRESENT: atraumatic, normocephalic Eye exam: PRESENT: conjunctiva pink. ABSENT: pallor, sclera icterus Mouth exam: PRESENT: moist Respiratory exam: PRESENT: clear to auscultation sara Cardiovascular exam: PRESENT: RRR, +S1, +S2. ABSENT: diastolic murmur, rubs, systolic murmur GI/Abdominal exam: PRESENT: normal bowel sounds, soft. ABSENT: tenderness Genitourinary exam: PRESENT: condom catheter in use for incontinence management following prostate cancer surgery. Extremities exam: PRESENT: other - let groin region lesion remain same in character.. ABSENT: pedal edema Neurological exam: PRESENT: alert, awake, oriented to person, oriented to place, oriented to time, oriented to situation, CN II-XII grossly intact. ABSENT: motor sensory deficit Psychiatric exam: PRESENT: appropriate affect, normal mood. ABSENT: homicidal ideation, suicidal ideation Skin exam: PRESENT: dry, warm, other - left groin lesion dressing satisfactory. Results Laboratory Results: 10/08/20 04:40 10/08/20 04:40 10/06/20 16:39 Blood Blood Culture (PCR) - Final 10/06/20 16:39 Blood Blood Culture - Final Clostridium Perfringens Stenotrophomonas Maltophilia 10/07/20 11:39 Groin - Left Gram Stain - Final 10/07/20 11:39 Groin - Left Wound Culture - Final Escherichia Coli Enterococcus Faecalis(Group D) C.albicans/C.dubliniensis No Anaerobic Organisms Impressions: Chest X-Ray 10/06/20 10:19 IMPRESSION: No acute cardiopulmonary process. PICC Line Insertion 10/11/20 00:00 IMPRESSION: SUCCESSFUL PLACEMENT OF A 5 FR DUAL LUMEN 51 CM PICC IN THE LEFT BASILIC VEIN. Assessment & Plan - Diagnosis (1) Abscess of groin, left Is this a current diagnosis for this admission?: Yes (2) Hypertension Qualifiers: Hypertension type: essential hypertension Qualified Code(s): I10 - Essential (primary) hypertension Is this a current diagnosis for this admission?: Yes (3) GERD (gastroesophageal reflux disease) Is this a current diagnosis for this admission?: Yes (4) Gout Qualifiers: Gout site: unspecified site Gout etiology: unspecified cause Chronicity: unspecified Qualified Code(s): M10.9 - Gout, unspecified Is this a current diagnosis for this admission?: Yes (5) E. coli UTI (urinary tract infection) Is this a current diagnosis for this admission?: Yes (6) Bacterial infection due to Clostridium perfringens Is this a current diagnosis for this admission?: Yes - Time Time Spent with patient: 25-34 minutes Level of Care: MEDICAL Medications reviewed and adjusted accordingly: Yes Anticipated discharge: Home with Homehealth Anticipated DC Timeframe: within 24 hours - Inpatient Certification Based on my medical assessment, after consideration of the patient's comorbidities, presenting symptoms, or acuity I expect that the services needed warrant INPATIENT care.: Yes I certify that my determination is in accordance with my understanding of Medicare's requirements for reasonable and necessary INPATIENT services [42 CFR 412.3e].: Yes Medical Necessity: Significant Comorbidiites Make Outpatient Treatment Too Risky, Need Close Monitoring Due to Risk of Patient Decompensation, Need For IV Fluids, Need for IV Antibiotics, Risk of Complication if Not Cared For in Hospital, Risk of Diagnosis Which Will Require Inpatient Eval/Care/Monitoring Post Hospital Care: D/C Pharmacologist Documentation - Plan Summary Plan Summary: Patient will need PICC line to establish vascular access for home antibiotic infusion. He will continue IV Vancomycin and Clindamycin x 10 days and oral Bactrim DS upon discharge for adequate coverage for his bacterial growth. Continue daily wound dressing. Obtain CBC with diff and BMP.
[2020-10-11 18:47] LABS: ABSOLUTE LYMPHOCYTES (AUTO) 1.9 10^3/uL (0.5-4.7); ABSOLUTE MONOCYTES (AUTO) 0.6 10^3/uL (0.1-1.4); TOTAL CELLS COUNTED % (AUTO) 100 %
[2020-10-11 18:52] LABS: ABSOLUTE EOSINOPHILS # (AUTO) 0.4 10^3/uL (0.0-0.6); ABSOLUTE NEUT (AUTO) 3.9 10^3/uL (1.7-8.2); BASOPHILS % (AUTO) 0.5 % (0-2); EOSINOPHILS % (AUTO) 6.1 % (0-6); HEMATOCRIT 35.1 % (37.9-51.0); HEMOGLOBIN 11.4 g/dL (13.5-17.0); LYMPHOCYTES % (AUTO) 26.9 % (13-45); MEAN CORPUSCULAR HEMOGLOBIN 27.5 pg (27.0-33.4); MEAN CORPUSCULAR HGB CONC 32.6 g/dL (32.0-36.0); MEAN CORPUSCULAR VOLUME 84 fl (80-97); MONOCYTES % (AUTO) 9.3 % (3-13); PLATELET COUNT 303 10^3/uL (150-450); RED BLOOD COUNT 4.16 10^6/uL (4.35-5.55); RED CELL DISTRIBUTION WIDTH 16.9 % (11.5-14.0); SEGMENTED NEUTROPHILS % (AUTO) 57.2 % (42-78); WHITE BLOOD COUNT 6.9 10^3/uL (4.0-10.5)
[2020-10-11 19:04] LABS: ANION GAP 8 (5-19); BLOOD UREA NITROGEN 23 mg/dL (7-20); CALCIUM 9.1 mg/dL (8.4-10.2); CARBON DIOXIDE 25 mmol/L (22-30); CHLORIDE 102 mmol/L (98-107); GLUCOSE 120 mg/dL (75-110); POTASSIUM 4.7 mmol/L (3.6-5.0)
[2020-10-11] MEDS: ALLOPURINOL 100 MG TABLET PO SCH (21:19)
[2020-10-11] MEDS: METOPROLOL SUCCINATE 25 MG TAB.SR.24H PO SCH (21:20)
[2020-10-11] MEDS: NORMAL SALINE 10 ML SDV (SCHEDULED) IV SCH (21:20)
[2020-10-12] MEDS: CLINDAMYCIN 600 MG/D5W RTU 600 MG/50 ML RTUPB IV SCH ×2 (02:52→09:37)
[2020-10-12] MEDS: PANTOPRAZOLE SODIUM 40 MG TABLET.DR PO SCH (05:15)
[2020-10-12] MEDS: NORMAL SALINE 10 ML SDV (SCHEDULED) IV SCH (09:34)
[2020-10-12] MEDS: VANCOMYCIN HCL 1,000 MG in DEXTROSE 5%-WATER 250 ML IV SCH (09:35)
[2020-10-12] MEDS: DOCUSATE SODIUM 100 MG CAPSULE PO SCH (09:36)
[2020-10-12] MEDS: ENOXAPARIN SODIUM INJ 40 MG/0.4 ML DISP.SYRIN SUBCUT SCH (09:36)
[2020-10-12] MEDS: NITROFURANTOIN MONOHYD/M-CRYST 100 MG CAPSULE PO SCH (09:36)
[2020-10-12] MEDS: AMLODIPINE BESYLATE 2.5 MG TABLET PO SCH (09:36)
[2020-10-12 12:24] VITALS: BP 114/68
--- NOTE | 2020-10-12 19:38 | PDOC DISCHARGE SUMMARY ---
Impression - Admit/DC Date/PCP Admission Date/Primary Care Provider: 10/06/20 16:14 MAGI BEAL Discharge Date: 10/12/20 - Discharge Diagnosis (1) Abscess of groin, left Is this a current diagnosis for this admission?: Yes (2) Hypertension Is this a current diagnosis for this admission?: Yes (3) GERD (gastroesophageal reflux disease) Is this a current diagnosis for this admission?: Yes (4) Gout Is this a current diagnosis for this admission?: Yes (5) E. coli UTI (urinary tract infection) Is this a current diagnosis for this admission?: Yes (6) Bacterial infection due to Clostridium perfringens Is this a current diagnosis for this admission?: Yes - Assessment Summary: Patient was admitted for possible left groin/thigh abscess formation with need for surgical intervention. He was started on appropriate empiric antibiotic therapy and taken to surgical suite on -- for significant incision and drainage procedure. Review of the involved site and expressed purulent collection was very suggestive of MRSA as per surgeon necessitating patient started on IV Vancomycin along with other antibiotic coverage. His cultures including blood, left groin I&D site, and urine grew very complex bacteria organisms with limitation in choice of antibiotic due to his allergy history of ciprofloxacin and Penicillin. He has PICC line inserted and he will be discharged home on 10 days course of IV Vancomycin, Clindamycin and oral single strength Bactrim. He will follow up with surgical team and myself in the office as instructed upon discharge. - Additional Information Resuscitation Status: Full Code Referrals: MAGI BEAL MD [Primary Care Provider] - 10/18/20 11:00 am RENÉ WYATT MD [ACTIVE STAFF] - 10/23/20 1:00 pm Prescriptions: Sulfamethoxazole/Trimethoprim [Bactrim 400-80 mg Tablet] 1 each PO BID #20 tablet Clindamycin in 0.9 % Sod Chlor [Clindamycin 300 mg/50 ml-Ns] 300 mg IV Q8 10 Days #30 piggyback Amlodipine Besylate [Norvasc 2.5 mg Tablet] 2.5 mg PO DAILY #30 tablet Home Medications: Allopurinol [Zyloprim 100 mg Tablet] 100 mg PO QHS 10/06/20 Metoprolol Succinate [Toprol Xl 25 mg Tab.sr] 25 mg PO QHS 10/06/20 Omeprazole Magnesium [Prilosec Otc] 20 mg PO QHS 10/06/20 Amlodipine Besylate [Norvasc 2.5 mg Tablet] 2.5 mg PO DAILY #30 tablet 10/12/20 Clindamycin in 0.9 % Sod Chlor [Clindamycin 300 mg/50 ml-Ns] 300 mg IV Q8 10 Days #30 piggyback 10/12/20 Heparin Sodium,Porcine [Heparin Flush 10 Unit/ml 5 ml Disp.syrg] 30 unit IV .AFTER EACH USE PRN disp.syrin 10/12/20 Heparin Sodium,Porcine [Heparin Flush 10 Unit/ml 5 ml Disp.syrg] 30 unit IV Q12 disp.syrin 10/12/20 Sulfamethoxazole/Trimethoprim [Bactrim 400-80 mg Tablet] 1 each PO BID #20 tablet 10/12/20 Vancomycin HCl [Vancocin Inj 1000 mg Vial] 1,000 mg IV Q12 10 Days vial 10/12/20 History of Present Illiness History of Present Illness: KRISTIN GAFFNEY is a 75 year old male patient known to my practice who has been on outpatient management for left groin lesion thought to be cellulitis versus abscess. He was managed with oral antibiotic but lesion eventually became more solidify with surrounding erythema and increasing pain. His recent CT scan evaluation suggested intramuscular abscess formation and he was referred to surgical team. Due to worsening pain and erythema, low grade fever and chills he was advised hospitalization for further evaluation and management. His morbidities include hypertension, GERD, gouty arthritis and history of prostate cancer with indwelling Pedersen catheter. He was seen in consultation by surgicalist, Dr Carpenter, and agreed to surgical intervention with possible I&D with biopsy if indicated. Hospital Course Hospital Course: Patient was admitted for possible left groin/thigh abscess formation with need for surgical intervention. He was started on appropriate empiric antibiotic therapy and taken to surgical suite on -- for significant incision and drainage procedure. Review of the involved site and expressed purulent collection was very suggestive of MRSA as per surgeon necessitating patient started on IV Vancomycin along with other antibiotic coverage. His cultures including blood, left groin I&D site, and urine grew very complex bacteria organisms with limitation in choice of antibiotic due to his allergy history of ciprofloxacin and Penicillin. He has PICC line inserted and he will be discharged home on 10 days course of IV Vancomycin, Clindamycin and oral single strength Bactrim. He will follow up with surgical team and myself in the office as instructed upon discharge. Physical Exam Vital Signs: Temp Pulse Resp BP Pulse Ox 97.9 F 86 17 122/69 97 10/12/20 07:24 10/12/20 07:24 10/12/20 07:24 10/12/20 07:24 10/12/20 07:24 Intake & Output 10/11/20 10/12/20 10/13/20 06:59 06:59 06:59 Intake Total 2078 1606 Output Total 2700 1350 Balance -622 256 Weight 87.6 kg 86.1 kg General appearance: PRESENT: no acute distress Head exam: PRESENT: atraumatic, normocephalic Eye exam: PRESENT: conjunctiva pink. ABSENT: pallor, sclera icterus Mouth exam: PRESENT: moist Respiratory exam: PRESENT: clear to auscultation sara Cardiovascular exam: PRESENT: RRR, +S1, +S2. ABSENT: diastolic murmur, rubs, systolic murmur GI/Abdominal exam: PRESENT: normal bowel sounds, soft. ABSENT: tenderness Genitourinary exam: PRESENT: condom catheter in use for incontinence management following prostate cancer surgery. Extremities exam: PRESENT: other - let groin region lesion remain same in character. ABSENT: pedal edema Neurological exam: PRESENT: alert, awake, oriented to person, oriented to place, oriented to time, oriented to situation, CN II-XII grossly intact. ABSENT: motor sensory deficit Psychiatric exam: PRESENT: appropriate affect, normal mood. ABSENT: homicidal ideation, suicidal ideation Skin exam: PRESENT: dry, warm, other - left groin lesion dressing satisfactory. Results Laboratory Results: WBC 6.9 10^3/uL (4.0-10.5) 10/11/20 18:37 RBC 4.16 10^6/uL (4.35-5.55) L 10/11/20 18:37 Hgb 11.4 g/dL (13.5-17.0) L 10/11/20 18:37 Hct 35.1 % (37.9-51.0) L 10/11/20 18:37 MCV 84 fl (80-97) 10/11/20 18:37 MCH 27.5 pg (27.0-33.4) 10/11/20 18:37 MCHC 32.6 g/dL (32.0-36.0) 10/11/20 18:37 RDW 16.9 % (11.5-14.0) H 10/11/20 18:37 Plt Count 303 10^3/uL (150-450) 10/11/20 18:37 Lymph % (Auto) 26.9 % (13-45) 10/11/20 18:37 [place] % (Auto) 9.3 % (3-13) 10/11/20 18:37 Eos % (Auto) 6.1 % (0-6) H 10/11/20 18:37 Baso % (Auto) 0.5 % (0-2) 10/11/20 18:37 Absolute Neuts (auto) 3.9 10^3/uL (1.7-8.2) 10/11/20 18:37 Absolute Lymphs (auto) 1.9 10^3/uL (0.5-4.7) 10/11/20 18:37 Absolute Monos (auto) 0.6 10^3/uL (0.1-1.4) 10/11/20 18:37 Absolute Eos (auto) 0.4 10^3/uL (0.0-0.6) 10/11/20 18:37 Absolute Basos (auto) 0.0 10^3/uL (0.0-0.2) 10/11/20 18:37 Seg Neutrophils % 57.2 % (42-78) 10/11/20 18:37 Sodium 135.2 mmol/L (137-145) L 10/11/20 18:37 Potassium 4.7 mmol/L (3.6-5.0) 10/11/20 18:37 Chloride 102 mmol/L (98-107) 10/11/20 18:37 Carbon Dioxide 25 mmol/L (22-30) 10/11/20 18:37 Anion Gap 8 (5-19) 10/11/20 18:37 BUN 23 mg/dL (7-20) H 10/11/20 18:37 Creatinine 1.26 mg/dL (0.52-1.25) H 10/11/20 18:37 Est GFR ( Amer) > 60 (>60) 10/11/20 18:37 Est GFR (Non-Af Amer) Cancelled 10/06/20 10:44 Est GFR (MDRD) Non-Af 56 (>60) L 10/11/20 18:37 Glucose 120 mg/dL (75-110) H 10/11/20 18:37 Calcium 9.1 mg/dL (8.4-10.2) 10/11/20 18:37 Total Bilirubin 0.4 mg/dL (0.2-1.3) 10/08/20 04:40 Direct Bilirubin 0.2 mg/dL (0.0-0.4) 10/08/20 04:40 Neonat Total Bilirubin Not Reportable 10/08/20 04:40 Neonat Direct Bilirubin Not Reportable 10/08/20 04:40 Neonat Indirect Bili Not Reportable 10/08/20 04:40 AST 15 U/L (17-59) L 10/08/20 04:40 ALT 12 U/L (<50) 10/08/20 04:40 Alkaline Phosphatase 82 U/L (38-126) 10/08/20 04:40 Total Protein 6.5 g/dL (6.3-8.2) 10/08/20 04:40 Albumin 3.2 g/dL (3.5-5.0) L 10/08/20 04:40 EGFR Cancelled 10/06/20 10:44 Urine Color STRAW 10/06/20 23:56 Urine Appearance CLEAR 10/06/20 23:56 Urine pH 7.0 (5.0-9.0) 10/06/20 23:56 Ur Specific [place] 1.009 10/06/20 23:56 Urine Protein NEGATIVE mg/dL (NEGATIVE) 10/06/20 23:56 Urine Glucose (UA) NEGATIVE mg/dL (NEGATIVE) 10/06/20 23:56 Urine Ketones NEGATIVE mg/dL (NEGATIVE) 10/06/20 23:56 Urine Blood NEGATIVE (NEGATIVE) 10/06/20 23:56 Urine Nitrite (Reflex) NEGATIVE (NEGATIVE) 10/06/20 23:56 Urine Bilirubin NEGATIVE (NEGATIVE) 10/06/20 23:56 Urine Urobilinogen NEGATIVE mg/dL (<2.0) 10/06/20 23:56 Leukocyte Esterase Rfl LARGE (NEGATIVE) H 10/06/20 23:56 Urine RBC (Auto) 3 /HPF 10/06/20 23:56 Urine Bacteria (Auto) 1+ /HPF 10/06/20 23:56 Urine WBC (Reflex) 15 /HPF 10/06/20 23:56 Squamous Epi Cells Auto <1 /HPF 10/06/20 23:56 Urine Mucus (Auto) RARE /LPF 10/06/20 23:56 Urine Ascorbic Acid NEGATIVE (NEGATIVE) 10/06/20 23:56 Time Trough Drawn 0939 10/09/20 09:39 Vancomycin Trough 12.7 ug/mL (5.0-20.0) 10/09/20 09:39 Influenza A (RT-PCR) NEGATIVE (NEGATIVE) 10/06/20 16:10 Influenza B (RT-PCR) NEGATIVE (NEGATIVE) 10/06/20 16:10 RSV (RT-PCR) NEGATIVE (NEGATIVE) 10/06/20 16:10 SARS-CoV-2 Rap RNA(RT-PCR) NEGATIVE (NEGATIVE) 10/06/20 16:10 Impressions: Chest X-Ray 10/06/20 10:19 IMPRESSION: No acute cardiopulmonary process. PICC Line Insertion 10/11/20 00:00 IMPRESSION: SUCCESSFUL PLACEMENT OF A 5 FR DUAL LUMEN 51 CM PICC IN THE LEFT BASILIC VEIN. Plan Health Concerns: Completion of antibiotic therapy and wound care at home. Plan of Treatment: Home infusion program for IV Vancomycin and Clindamycin. Maintain on oral Bactri m SS bid. Vancomycin trough q 48 hours and BMP as indicated while on antibiotic therapy. Goals: Reduce readmission risk. Time Spent: Greater than 30 Minutes - Extended time was spent with patient and spouse regarding post acute care management arrangement and follow up plan. Stroke Is this a Stroke Patient?: No Acute Heart Failure Is this a Heart Failure Patient?: No
--- NOTE | 2020-10-18 09:05 | Progress Note ---
Provider Note Provider Note: Response to query: If the surgeon stated that abscess is to muscle layer level in the operative note then it is and I am in agreement. If there is code for level of abscess please provide it on the system. Thanks.
== END 2020-10-12 13:08 | disposition home health service (06) | DRG 464 ==
LOC: ER 09:18 → EH 16:14 → 4N 18:33
PROVIDERS: ADMIT Internal Medicine Geriatric Medicine; ATTEND Internal Medicine Geriatric Medicine
PROC: 0JBM0ZZ Excision of Left Upper Leg Subcutaneous Tissue and Fascia, Open Approach (ICD-10-PCS; principal; 2020-10-06)
PROC: 0J9M00Z Drainage of Left Upper Leg Subcutaneous Tissue and Fascia with Drainage Device, Open Approach (ICD-10-PCS; 2020-10-06)
PROC: 02HV33Z Insertion of Infusion Device into Superior Vena Cava, Percutaneous Approach (ICD-10-PCS; 2020-10-11)
PROC: B548ZZA Ultrasonography of Superior Vena Cava, Guidance (ICD-10-PCS; 2020-10-11)
DX: M60.052 Infective myositis, left thigh (principal); L02.416 Cutaneous abscess of left lower limb; N39.0 Urinary tract infection, site not specified; B96.7 Clostridium perfringens [C. perfringens] as the cause of diseases classified elsewhere; B95.62 Methicillin resistant Staphylococcus aureus infection as the cause of diseases classified elsewhere; I10 Essential (primary) hypertension; M10.9 Gout, unspecified; K21.9 Gastro-esophageal reflux disease without esophagitis; B96.20 Unspecified Escherichia coli [E. coli] as the cause of diseases classified elsewhere; Z20.828 Contact with and (suspected) exposure to other viral communicable diseases; Z88.1 Allergy status to other antibiotic agents; Z82.49 Family history of ischemic heart disease and other diseases of the circulatory system; Z85.46 Personal history of malignant neoplasm of prostate; Z90.49 Acquired absence of other specified parts of digestive tract; Z92.3 Personal history of irradiation; Z88.0 Allergy status to penicillin
CPT/HCPCS: 1250; 36415; 36573; 71046; 80048; 80053; 80202; 81001; 85025; 87040; 87070; 87075; 87077; 87086; 87088; 87150; 87186; 87205; 93005; 93010; 96360; 96361; 99140; 99285; 0241U; C1758; C1769; C9803; J1100; J1642; J1650; J2250; J2405; J2704; J3010; J3370; J3490; J7030; J7060; J8499